=== PATIENT | female | born 1950 | race African-American/Black ===

== ENCOUNTER 2020-12-08 19:03 | Inpatient (IN) | payer OTHER ==
[2020-12-08] MEDS ORDERED: SODIUM CHLORIDE 1,000 ML IV STA (21:13)
[2020-12-08] MEDS ORDERED: ACETAMINOPHEN 325 MG TABLET (FP) PO ONE (21:38)
[2020-12-08] MEDS ORDERED: DIPHTH,PERTUSS(ACELL),TET 0.5 ML DISP.SYRIN IM ONE ×2 (21:51→21:54)
[2020-12-08 21:54] LABS: BASO % 0.1 % (0-2.0); EOS % 0.1 % (0-4.5); HEMOGLOBIN 11.9 GM/dL (10.7-15.3); LYMPH % 2.1 % (8-40); MCH 31.1 pg (25.7-33.7); MCHC 32.9 g/dl (32.0-36.0); MEAN CELL VOLUME 94.4 fl (80-96); MEAN PLT VOLUME 8.3 fl (7.5-11.1); MONO % 10.3 % (3.8-10.2); NEUT % 87.4 % (42.8-82.8); RBC 3.81 M/mm3 (3.60-5.2); RDW 14.9 % (11.6-15.6); WHITE BLOOD COUNT 27.8 K/mm3 (4.0-10.0)
[2020-12-08] MEDS ORDERED: ACETAMINOPHEN 325 MG TABLET (FP) ONE (21:54)
[2020-12-08 22:12] LABS: POTASSIUM 4.6 mmol/L (3.5-5.1)
[2020-12-08 22:13] LABS: PLATELET COUNT 1245 K/MM3 (134-434)
[2020-12-08 22:15] LABS: CALCIUM 9.5 mg/dL (8.5-10.1)
[2020-12-08 22:16] LABS: BLOOD UREA NITROGEN 25.3 mg/dL (7-18)
[2020-12-08 22:19] LABS: CREATININE 1.6 mg/dL (0.55-1.3)
[2020-12-08 22:20] LABS: BILIRUBIN,TOTAL 1.2 mg/dL (0.2-1)
[2020-12-08] MEDS ORDERED: PIPERACILLIN/TAZOB 4.5 GM 4.5 GM in DEXTROSE 5%-WATER 100 ML IVPB ONE (22:21)
[2020-12-08] MEDS ORDERED: VANCOMYCIN 1,000 MG in DEXTROSE 5%-WATER - 250 ML IVPB ONE (22:21)
[2020-12-08] MEDS ORDERED: LACTATED RINGERS SOLUTION 1000 ML INFUS.BAG IV ONE (22:39)
[2020-12-08] MEDS ORDERED: PIPERACILLIN/TAZOB 4.5 GM 4.5 GM/100 ML BAG IVPB ONE (22:41)
[2020-12-08] MEDS ORDERED: VANCOMYCIN 1 GRAM (PRE-DOCKED) 1,000 MG/250 ML BAG IVPB ONE (22:42)
[2020-12-08] MEDS ORDERED: HEPARIN NA (PORCINE) 5,000 UNITS/ML 1ML VIAL IVPUSH PRN (22:44)
[2020-12-09 01:16] LABS: INR 1.16 (0.83-1.09)
[2020-12-09 01:18] LABS: ACTIVATED PTT 32.5 SECONDS (25.2-36.5)
[2020-12-09] MEDS ORDERED: ACETAMINOPHEN 325 MG TABLET (FP) PO PRN (02:06)
[2020-12-09] MEDS ORDERED: ALBUTEROL SO4 HFA INHALER IH PRN (02:11)
[2020-12-09] MEDS: HEPARIN NA (PORCINE) 5,000 UNITS/ML 1ML VIAL IVPUSH PRN ×3 (03:05→16:48)
[2020-12-09] MEDS ORDERED: HEPARIN INFUSION - 25,000 UNITS/500 ML INFUS.BAG IVPB ONE (03:12)
[2020-12-09] MEDS ORDERED: HEPARIN NA (PORCINE) 5,000 UNITS/ML 1ML VIAL ONE ×3 (03:12→16:50)
[2020-12-09] MEDS: HEPARIN - 25,000 UNIT in SODIUM CHLORIDE 495 ML IV SCH (03:29)
[2020-12-09 07:53] LABS: HEMATOCRIT 32.7 % (32.4-45.2); MCH 31.6 pg (25.7-33.7); MCHC 33.6 g/dl (32.0-36.0); MEAN PLT VOLUME 8.1 fl (7.5-11.1); RBC 3.48 M/mm3 (3.60-5.2); RDW 15.1 % (11.6-15.6)
[2020-12-09 07:59] LABS: POTASSIUM 5.2 mmol/L (3.5-5.1)
[2020-12-09 08:02] LABS: INR 1.13 (0.83-1.09); PROTHROMBIN TIME (PATIENT) 13.9 SEC (9.7-13.0)
[2020-12-09 08:05] LABS: ALBUMIN 2.5 g/dl (3.4-5.0); BLOOD UREA NITROGEN 24.9 mg/dL (7-18); CALCIUM 8.8 mg/dL (8.5-10.1); MAGNESIUM 2.3 mg/dL (1.8-2.4)
[2020-12-09 08:09] LABS: BILIRUBIN,TOTAL 0.9 mg/dL (0.2-1); CREATININE 1.7 mg/dL (0.55-1.3); PHOSPHOROUS 4.4 mg/dL (2.5-4.9); TOT PROT 5.9 g/dl (6.4-8.2)
[2020-12-09 08:18] LABS: PLATELET COUNT 1163 K/MM3 (134-434)
[2020-12-09] MEDS: SODIUM CHLORIDE 1,000 ML IV SCH (10:37)
[2020-12-09] MEDS ORDERED: diphenhydrAMINE HCL 25 MG CAPSULE (FP) PO ONE ×2 (15:21→15:22)
[2020-12-10 05:26] LABS: EPI CELLS >36 /uL (0-25.1); HYALINE CASTS 3 /uL (0-3.1); URINE APPEARANCE CLOUDY; URINE BACTERIA 32 /uL (0-1359); URINE BILIRUBIN NEGATIVE (NEGATIVE); URINE COLOR YELLOW; URINE GLUCOSE (UA) NEGATIVE (NEGATIVE); URINE KETONE NEGATIVE (NEGATIVE); URINE LEUK ESTERASE TRACE (NEGATIVE); URINE NITRITE NEGATIVE (NEGATIVE); URINE PROTEIN 1+ (NEGATIVE); URINE RBC 20 /uL (0-23.9); URINE UROBILINOGEN 0.2 mg/dL (0.2-1.0); URINE WBC 31 /uL (0-25.8)
[2020-12-10] MEDS: HEPARIN - 25,000 UNIT in SODIUM CHLORIDE 495 ML IV SCH ×3 (06:36→22:15)
[2020-12-10] MEDS: SODIUM CHLORIDE 1,000 ML IV SCH ×2 (06:37→13:56)
[2020-12-10 09:01] LABS: HEMATOCRIT 32.2 % (32.4-45.2); HEMOGLOBIN 10.8 GM/dL (10.7-15.3); MCH 31.4 pg (25.7-33.7); MCHC 33.4 g/dl (32.0-36.0); MEAN CELL VOLUME 93.9 fl (80-96); MEAN PLT VOLUME 7.8 fl (7.5-11.1); PLATELET COUNT 1100 K/MM3 (134-434); RBC 3.43 M/mm3 (3.60-5.2); RDW 14.8 % (11.6-15.6); WHITE BLOOD COUNT 15.5 K/mm3 (4.0-10.0)
[2020-12-10] MEDS: metoPROLOL SUCCINATE 25 MG TAB.SR.24H (FP) PO SCH (09:38)
[2020-12-10] MEDS ORDERED: FLU VACCINE (FLULAVAL) PF 60 MCG/0.5 ML SYRINGE 2020-2021 IM ONE (10:00)
[2020-12-10] MEDS: diphenhydrAMINE HCL 25 MG CAPSULE (FP) PO PRN ×2 (12:08→22:14)
[2020-12-10] MEDS: HEPARIN NA (PORCINE) 5,000 UNITS/ML 1ML VIAL IVPUSH PRN (12:15)
[2020-12-11] MEDS: HEPARIN NA (PORCINE) 5,000 UNITS/ML 1ML VIAL IVPUSH PRN (06:53)
[2020-12-11] MEDS: HEPARIN - 25,000 UNIT in SODIUM CHLORIDE 495 ML IV SCH (06:54)
[2020-12-11] MEDS ORDERED: HEPARIN INFUSION - 25,000 UNITS/500 ML INFUS.BAG IVPB SCH (07:00)
[2020-12-11 08:43] LABS: HEMATOCRIT 30.4 % (32.4-45.2); HEMOGLOBIN 10.2 GM/dL (10.7-15.3); MCHC 33.7 g/dl (32.0-36.0); MEAN CELL VOLUME 94.7 fl (80-96); MEAN PLT VOLUME 8.4 fl (7.5-11.1); PLATELET COUNT 1081 K/MM3 (134-434); RDW 14.9 % (11.6-15.6); WHITE BLOOD COUNT 16.4 K/mm3 (4.0-10.0)
[2020-12-11] MEDS: diphenhydrAMINE HCL 25 MG CAPSULE (FP) PO PRN ×2 (09:11→21:37)
[2020-12-11] MEDS: metoPROLOL SUCCINATE 25 MG TAB.SR.24H (FP) PO SCH (09:11)
[2020-12-11] MEDS: SODIUM CHLORIDE 1,000 ML IV SCH (09:12)
[2020-12-11] MEDS ORDERED: DEXTROSE 5%-WATER 100 ML IVPB ONE (11:49)
[2020-12-11] MEDS: CEFTRIAXONE 2 GM in DEXTROSE 5%-WATER 2 GM/100 ML BAG IVPB SCH (12:12)
[2020-12-11 13:48] LABS: POTASSIUM 4.2 mmol/L (3.5-5.1)
[2020-12-11 13:50] LABS: ALBUMIN 2.1 g/dl (3.4-5.0); BLOOD UREA NITROGEN 18.4 mg/dL (7-18); CALCIUM 8.2 mg/dL (8.5-10.1)
[2020-12-11 13:54] LABS: CREATININE 1.3 mg/dL (0.55-1.3)
[2020-12-11 13:55] LABS: BILIRUBIN,TOTAL 0.3 mg/dL (0.2-1); TOT PROT 5.4 g/dl (6.4-8.2)
[2020-12-11] MEDS: HEPARIN INFUSION - 25,000 UNITS/500 ML INFUS.BAG IVPB SCH (15:31)
[2020-12-11] MEDS: ACETYLCYSTEINE 20% 200MG/ML 4 ML VIAL *FOR ORAL / INH USE ONLY PO SCH (21:37)
[2020-12-12] MEDS: SODIUM CHLORIDE 1,000 ML IV SCH ×3 (02:05→16:25)
[2020-12-12] MEDS: HEPARIN INFUSION - 25,000 UNITS/500 ML INFUS.BAG IVPB SCH ×2 (03:36→16:26)
[2020-12-12 08:25] LABS: HEMATOCRIT 32.5 % (32.4-45.2); HEMOGLOBIN 10.5 GM/dL (10.7-15.3); MCH 30.7 pg (25.7-33.7); MCHC 32.3 g/dl (32.0-36.0); MEAN CELL VOLUME 94.9 fl (80-96); MEAN PLT VOLUME 8.2 fl (7.5-11.1); RBC 3.42 M/mm3 (3.60-5.2); WHITE BLOOD COUNT 16.1 K/mm3 (4.0-10.0)
[2020-12-12 08:28] LABS: PLATELET COUNT 1164 K/MM3 (134-434)
[2020-12-12 08:43] LABS: POTASSIUM 4.5 mmol/L (3.5-5.1)
[2020-12-12 08:46] LABS: ALBUMIN 2.3 g/dl (3.4-5.0); BLOOD UREA NITROGEN 15.4 mg/dL (7-18); CALCIUM 8.7 mg/dL (8.5-10.1); MAGNESIUM 1.8 mg/dL (1.8-2.4)
[2020-12-12 08:50] LABS: CREATININE 1.3 mg/dL (0.55-1.3); PHOSPHOROUS 3.2 mg/dL (2.5-4.9)
[2020-12-12 08:51] LABS: BILIRUBIN,TOTAL 1.2 mg/dL (0.2-1); TOT PROT 5.7 g/dl (6.4-8.2)
[2020-12-12] MEDS ORDERED: DEXTROSE 5%-WATER 100 ML IVPB ONE (09:14)
[2020-12-12] MEDS ORDERED: PT OWN MED DRAWER 7, Y5N ONE ×2 (09:19→13:00)
[2020-12-12] MEDS: CEFTRIAXONE 2 GM in DEXTROSE 5%-WATER 2 GM/100 ML BAG IVPB SCH (09:41)
[2020-12-12] MEDS: metoPROLOL SUCCINATE 25 MG TAB.SR.24H (FP) PO SCH (09:42)
[2020-12-12] MEDS: ACETYLCYSTEINE 20% 200MG/ML 4 ML VIAL *FOR ORAL / INH USE ONLY PO SCH ×2 (11:42→13:13)
[2020-12-12] MEDS ORDERED: MAGNESIUM CL 64 MG TABLET.SA PO SCH (13:00)
[2020-12-13] MEDS: diphenhydrAMINE HCL 25 MG CAPSULE (FP) PO PRN ×3 (00:44→19:38)
[2020-12-13] MEDS: ACETYLCYSTEINE 20% 200MG/ML 4 ML VIAL *FOR ORAL / INH USE ONLY PO SCH ×2 (07:53→09:47)
[2020-12-13 09:01] LABS: HEMATOCRIT 30.9 % (32.4-45.2); HEMOGLOBIN 10.2 GM/dL (10.7-15.3); MCH 31.1 pg (25.7-33.7); MEAN CELL VOLUME 94.2 fl (80-96); MEAN PLT VOLUME 7.8 fl (7.5-11.1); RBC 3.28 M/mm3 (3.60-5.2); RDW 15.1 % (11.6-15.6); WHITE BLOOD COUNT 15.3 K/mm3 (4.0-10.0)
[2020-12-13 09:07] LABS: PLATELET COUNT 1194 K/MM3 (134-434)
[2020-12-13 09:24] LABS: POTASSIUM 4.3 mmol/L (3.5-5.1)
[2020-12-13 09:27] LABS: ALBUMIN 2.2 g/dl (3.4-5.0); BLOOD UREA NITROGEN 12.5 mg/dL (7-18); CALCIUM 8.4 mg/dL (8.5-10.1); MAGNESIUM 1.7 mg/dL (1.8-2.4)
[2020-12-13 09:30] LABS: CREATININE 1.2 mg/dL (0.55-1.3)
[2020-12-13 09:31] LABS: PHOSPHOROUS 3.8 mg/dL (2.5-4.9)
[2020-12-13] MEDS ORDERED: DEXTROSE 5%-WATER 100 ML IVPB ONE (09:31)
[2020-12-13 09:32] LABS: BILIRUBIN,TOTAL 0.3 mg/dL (0.2-1); TOT PROT 5.6 g/dl (6.4-8.2)
[2020-12-13] MEDS: metoPROLOL SUCCINATE 25 MG TAB.SR.24H (FP) PO SCH (09:47)
[2020-12-13] MEDS: CEFTRIAXONE 2 GM in DEXTROSE 5%-WATER 2 GM/100 ML BAG IVPB SCH (09:47)
[2020-12-13] MEDS: HEPARIN INFUSION - 25,000 UNITS/500 ML INFUS.BAG IVPB SCH (09:47)
[2020-12-13] MEDS: SODIUM CHLORIDE 1,000 ML IV SCH (09:47)
[2020-12-13] MEDS ORDERED: MAGNESIUM 2GM/50ML STERILE WATER IVPB IVPB ONE (13:56)
[2020-12-13] MEDS ORDERED: DEXTROSE 5%-NORMAL SALINE 1,000 ML IV SCH (14:00)
[2020-12-13] MEDS ORDERED: AMINO ACIDS 4.25%/D5W 1,000 ML IV SCH (14:00)
[2020-12-13] MEDS ORDERED: SODIUM CHLORIDE 1,000 ML IV SCH (14:15)
[2020-12-13] MEDS ORDERED: HEPARIN NA (PORCINE) 5,000 UNITS/ML 1ML VIAL IVPUSH ONE (15:31)
[2020-12-13] MEDS: HEPARIN INFUSION - 25,000 UNIT/500 ML INFUS.BAG IVPB SCH (16:20)
[2020-12-13 18:07] LABS: URIC ACID 3.4 mg/dL (2.6-7.2)
[2020-12-14] MEDS ORDERED: HEPARIN NA (PORCINE) 5,000 UNITS/ML 1ML VIAL IVPUSH PRN ×2 (00:42→00:50)
[2020-12-14] MEDS: HEPARIN NA (PORCINE) 5,000 UNITS/ML 1ML VIAL IVPUSH PRN ×3 (00:57→17:26)
[2020-12-14] MEDS: ALLOPURINOL 300 MG TABLET (FP) PO SCH ×2 (00:57→11:55)
[2020-12-14] MEDS: diphenhydrAMINE HCL 25 MG CAPSULE (FP) PO PRN ×3 (01:14→23:30)
[2020-12-14 09:56] LABS: BASO % 0.8 % (0-2.0); HEMATOCRIT 29.8 % (32.4-45.2); LYMPH % 17.5 % (8-40); MCH 31.8 pg (25.7-33.7); MCHC 33.5 g/dl (32.0-36.0); MEAN CELL VOLUME 94.8 fl (80-96); MONO % 6.9 % (3.8-10.2); NEUT % 72.8 % (42.8-82.8); RBC 3.14 M/mm3 (3.60-5.2); WHITE BLOOD COUNT 12.8 K/mm3 (4.0-10.0)
[2020-12-14 09:58] LABS: PLATELET COUNT 1174 K/MM3 (134-434)
[2020-12-14 10:29] LABS: CALCIUM 8.2 mg/dL (8.5-10.1)
[2020-12-14 10:30] LABS: ALBUMIN 2.2 g/dl (3.4-5.0); BLOOD UREA NITROGEN 8.9 mg/dL (7-18); MAGNESIUM 2.2 mg/dL (1.8-2.4)
[2020-12-14 10:32] LABS: CREATININE 1.2 mg/dL (0.55-1.3)
[2020-12-14 10:33] LABS: PHOSPHOROUS 3.2 mg/dL (2.5-4.9)
[2020-12-14 10:34] LABS: BILIRUBIN,TOTAL 0.8 mg/dL (0.2-1); TOT PROT 5.2 g/dl (6.4-8.2)
[2020-12-14 10:59] LABS: ANISOCYTOSIS 1+; PLATELET ESTIMATE INCREASED
[2020-12-14] MEDS ORDERED: DEXTROSE 5%-WATER 100 ML IVPB ONE (11:48)
[2020-12-14] MEDS: metoPROLOL SUCCINATE 25 MG TAB.SR.24H (FP) PO SCH (11:55)
[2020-12-14] MEDS: CEFTRIAXONE 2 GM in DEXTROSE 5%-WATER 2 GM/100 ML BAG IVPB SCH (11:55)
[2020-12-14] MEDS: HYDROXYUREA 500 MG CAPSULE PO SCH ×2 (11:55→23:29)
[2020-12-14] MEDS: HEPARIN INFUSION - 25,000 UNIT/500 ML INFUS.BAG IVPB SCH (14:44)
[2020-12-14] MEDS ORDERED: PT OWN MED DRAWER 7, Y5N ONE (23:15)
[2020-12-14] MEDS: BUDESONIDE/FORMETEROL FUMARATE 80/4.5 mcg INHALER IH SCH (23:29)
[2020-12-15] MEDS ORDERED: HEPARIN NA (PORCINE) 5,000 UNITS/ML 1ML VIAL IVPUSH PRN (02:16)
[2020-12-15] MEDS: HEPARIN INFUSION - 25,000 UNIT/500 ML INFUS.BAG IVPB SCH ×2 (02:35→10:49)
[2020-12-15] MEDS ORDERED: DEXTROSE 5%-WATER 100 ML IVPB ONE (09:06)
[2020-12-15] MEDS: BUDESONIDE/FORMETEROL FUMARATE 80/4.5 mcg INHALER IH SCH ×2 (09:11→21:25)
[2020-12-15] MEDS: CEFTRIAXONE 2 GM in DEXTROSE 5%-WATER 2 GM/100 ML BAG IVPB SCH (09:12)
[2020-12-15] MEDS: HYDROXYUREA 500 MG CAPSULE PO SCH ×2 (09:14→14:24)
[2020-12-15] MEDS: ALLOPURINOL 300 MG TABLET (FP) PO SCH ×2 (09:14→14:24)
[2020-12-15] MEDS: metoPROLOL SUCCINATE 25 MG TAB.SR.24H (FP) PO SCH ×2 (09:14→14:26)
[2020-12-15 09:17] LABS: BASO % 1.4 % (0-2.0); EOS % 2.2 % (0-4.5); HEMATOCRIT 30.7 % (32.4-45.2); HEMOGLOBIN 10.3 GM/dL (10.7-15.3); LYMPH % 16.6 % (8-40); MCH 31.4 pg (25.7-33.7); MCHC 33.4 g/dl (32.0-36.0); MEAN CELL VOLUME 94.1 fl (80-96); MEAN PLT VOLUME 7.6 fl (7.5-11.1); MONO % 8.7 % (3.8-10.2); NEUT % 71.1 % (42.8-82.8); RBC 3.27 M/mm3 (3.60-5.2); WHITE BLOOD COUNT 12.5 K/mm3 (4.0-10.0)
[2020-12-15 09:30] LABS: PLATELET COUNT 1273 K/MM3 (134-434)
[2020-12-15 09:39] LABS: POTASSIUM 4.4 mmol/L (3.5-5.1)
[2020-12-15 09:55] LABS: ALBUMIN 2.5 g/dl (3.4-5.0)
[2020-12-15 09:59] LABS: CALCIUM 8.9 mg/dL (8.5-10.1)
[2020-12-15 10:02] LABS: BILIRUBIN,TOTAL 0.4 mg/dL (0.2-1); CREATININE 1.3 mg/dL (0.55-1.3); PHOSPHOROUS 4.3 mg/dL (2.5-4.9)
[2020-12-15 11:39] VITALS: BMI 20.5
[2020-12-15] MEDS: diphenhydrAMINE HCL 25 MG CAPSULE (FP) PO PRN ×2 (14:34→21:30)
[2020-12-15] MEDS: ENOXAPARIN NA (PORCINE) 40 MG/0.4 ML DISP.SYRIN SQ SCH ×2 (14:35→21:25)
[2020-12-16] MEDS: HYDROXYUREA 500 MG CAPSULE PO SCH ×3 (02:25→21:50)
[2020-12-16 07:47] LABS: BASO % 0.7 % (0-2.0); EOS % 1.9 % (0-4.5); HEMATOCRIT 29.9 % (32.4-45.2); HEMOGLOBIN 10.1 GM/dL (10.7-15.3); LYMPH % 18.2 % (8-40); MCH 31.7 pg (25.7-33.7); MCHC 33.6 g/dl (32.0-36.0); MEAN CELL VOLUME 94.2 fl (80-96); MEAN PLT VOLUME 7.9 fl (7.5-11.1); MONO % 6.8 % (3.8-10.2); NEUT % 72.4 % (42.8-82.8); RBC 3.18 M/mm3 (3.60-5.2); RDW 14.8 % (11.6-15.6); WHITE BLOOD COUNT 11.9 K/mm3 (4.0-10.0)
[2020-12-16 07:51] LABS: PLATELET COUNT 1252 K/MM3 (134-434)
[2020-12-16 08:26] LABS: POTASSIUM 4.9 mmol/L (3.5-5.1)
[2020-12-16 09:01] LABS: ALBUMIN 2.5 g/dl (3.4-5.0); BLOOD UREA NITROGEN 17.1 mg/dL (7-18); CALCIUM 9.2 mg/dL (8.5-10.1)
[2020-12-16 09:02] LABS: BILIRUBIN,TOTAL 0.4 mg/dL (0.2-1)
[2020-12-16 09:06] LABS: TOT PROT 6.1 g/dl (6.4-8.2)
[2020-12-16 09:08] LABS: CREATININE 1.4 mg/dL (0.55-1.3)
[2020-12-16] MEDS ORDERED: DEXTROSE 5%-WATER 100 ML IVPB ONE (09:25)
[2020-12-16] MEDS ORDERED: PT OWN MED DRAWER 7, Y5N ONE (09:25)
[2020-12-16] MEDS: CEFTRIAXONE 2 GM in DEXTROSE 5%-WATER 2 GM/100 ML BAG IVPB SCH (09:33)
[2020-12-16] MEDS: ENOXAPARIN NA (PORCINE) 40 MG/0.4 ML DISP.SYRIN SQ SCH ×2 (09:33→21:50)
[2020-12-16] MEDS: metoPROLOL SUCCINATE 25 MG TAB.SR.24H (FP) PO SCH (09:33)
[2020-12-16] MEDS: ALLOPURINOL 300 MG TABLET (FP) PO SCH (09:33)
[2020-12-16] MEDS: MULTIVITAMINS (DAILY MVI) TABLET (FP) PO SCH (09:33)
[2020-12-16] MEDS: BUDESONIDE/FORMETEROL FUMARATE 80/4.5 mcg INHALER IH SCH ×2 (09:34→21:50)
[2020-12-16] MEDS ORDERED: MULTIVIT-MINERALS ORAL LIQUID PO SCH (10:00)
[2020-12-16] MEDS: diphenhydrAMINE HCL 25 MG CAPSULE (FP) PO PRN ×2 (13:14→23:06)
[2020-12-16] MEDS ORDERED: SODIUM CHLORIDE 1,000 ML IV SCH (13:15)
[2020-12-16 14:07] LABS: RISTOCETIN CO-FACTOR 146 % (50-200); VON WILLEBRAND ANTIGEN 198 % (50-200)
[2020-12-17] MEDS ORDERED: DEXTROSE 5%-WATER 100 ML IVPB ONE (10:18)
[2020-12-17] MEDS: HYDROXYUREA 500 MG CAPSULE PO SCH ×2 (10:23→22:06)
[2020-12-17] MEDS: ALLOPURINOL 300 MG TABLET (FP) PO SCH (10:23)
[2020-12-17] MEDS: metoPROLOL SUCCINATE 25 MG TAB.SR.24H (FP) PO SCH (10:23)
[2020-12-17] MEDS: diphenhydrAMINE HCL 25 MG CAPSULE (FP) PO PRN ×2 (10:23→22:06)
[2020-12-17] MEDS: BUDESONIDE/FORMETEROL FUMARATE 80/4.5 mcg INHALER IH SCH ×2 (10:24→22:07)
[2020-12-17] MEDS: MULTIVITAMINS (DAILY MVI) TABLET (FP) PO SCH (10:24)
[2020-12-17] MEDS: ENOXAPARIN NA (PORCINE) 40 MG/0.4 ML DISP.SYRIN SQ SCH ×2 (10:24→22:06)
[2020-12-17] MEDS: CEFTRIAXONE 2 GM in DEXTROSE 5%-WATER 2 GM/100 ML BAG IVPB SCH (10:24)
[2020-12-17 10:26] LABS: HEMATOCRIT 31.6 % (32.4-45.2); HEMOGLOBIN 10.5 GM/dL (10.7-15.3); MCH 31.5 pg (25.7-33.7); MCHC 33.1 g/dl (32.0-36.0); MEAN CELL VOLUME 95.2 fl (80-96); MEAN PLT VOLUME 8.1 fl (7.5-11.1); RBC 3.32 M/mm3 (3.60-5.2); RDW 15.4 % (11.6-15.6); WHITE BLOOD COUNT 11.8 K/mm3 (4.0-10.0)
[2020-12-17 10:28] LABS: PLATELET COUNT 1261 K/MM3 (134-434)
[2020-12-17 11:20] LABS: CALCIUM 9.1 mg/dL (8.5-10.1)
[2020-12-17 11:21] LABS: ALBUMIN 2.7 g/dl (3.4-5.0); BLOOD UREA NITROGEN 17.1 mg/dL (7-18)
[2020-12-17 11:24] LABS: CREATININE 1.4 mg/dL (0.55-1.3)
[2020-12-17 11:25] LABS: BILIRUBIN,TOTAL 0.5 mg/dL (0.2-1)
[2020-12-17 11:26] LABS: TOT PROT 6.2 g/dl (6.4-8.2)
[2020-12-17 11:27] LABS: POTASSIUM 5.5 mmol/L (3.5-5.1)
[2020-12-17] MEDS ORDERED: SODIUM ZIRCONIUM CYCLOSILICATE (LOKELMA) 5 GM PACKET PO ONE (13:00)
[2020-12-17] MEDS: MELATONIN 5 MG TABLETS PO SCH (22:05)
[2020-12-18 10:20] LABS: BASO % 1.3 % (0-2.0); EOS % 1.8 % (0-4.5); HEMATOCRIT 30.9 % (32.4-45.2); HEMOGLOBIN 10.3 GM/dL (10.7-15.3); LYMPH % 17.1 % (8-40); MCH 31.6 pg (25.7-33.7); MCHC 33.3 g/dl (32.0-36.0); MEAN CELL VOLUME 94.8 fl (80-96); MEAN PLT VOLUME 7.9 fl (7.5-11.1); MONO % 7.9 % (3.8-10.2); NEUT % 71.9 % (42.8-82.8); RBC 3.26 M/mm3 (3.60-5.2); WHITE BLOOD COUNT 11.2 K/mm3 (4.0-10.0)
[2020-12-18 10:21] LABS: PLATELET COUNT 1315 K/MM3 (134-434)
[2020-12-18 10:45] LABS: POTASSIUM 5.4 mmol/L (3.5-5.1)
[2020-12-18 10:51] LABS: CALCIUM 9.1 mg/dL (8.5-10.1)
[2020-12-18 10:52] LABS: ALBUMIN 2.7 g/dl (3.4-5.0); BLOOD UREA NITROGEN 20.7 mg/dL (7-18)
[2020-12-18 10:55] LABS: CREATININE 1.4 mg/dL (0.55-1.3)
[2020-12-18 10:57] LABS: TOT PROT 6.3 g/dl (6.4-8.2)
[2020-12-18] MEDS ORDERED: SODIUM ZIRCONIUM CYCLOSILICATE (LOKELMA) 5 GM PACKET PO SCH (11:00)
[2020-12-18] MEDS ORDERED: DEXTROSE 5%-WATER 100 ML IVPB ONE (11:02)
[2020-12-18] MEDS: metoPROLOL SUCCINATE 25 MG TAB.SR.24H (FP) PO SCH (11:05)
[2020-12-18] MEDS: HYDROXYUREA 500 MG CAPSULE PO SCH ×2 (11:05→22:09)
[2020-12-18] MEDS: CEFTRIAXONE 2 GM in DEXTROSE 5%-WATER 2 GM/100 ML BAG IVPB SCH (11:06)
[2020-12-18] MEDS: ENOXAPARIN NA (PORCINE) 40 MG/0.4 ML DISP.SYRIN SQ SCH ×2 (11:06→22:09)
[2020-12-18] MEDS: ALLOPURINOL 300 MG TABLET (FP) PO SCH (11:06)
[2020-12-18] MEDS: BUDESONIDE/FORMETEROL FUMARATE 80/4.5 mcg INHALER IH SCH ×2 (11:07→22:19)
[2020-12-18 11:09] LABS: BILIRUBIN,TOTAL 0.7 mg/dL (0.2-1)
[2020-12-18] MEDS: diphenhydrAMINE HCL 25 MG CAPSULE (FP) PO PRN ×2 (13:12→22:09)
[2020-12-18] MEDS ORDERED: SODIUM CHLORIDE 500 ML IV STA (14:44)
[2020-12-18] MEDS: MELATONIN 5 MG TABLETS PO SCH (22:17)
[2020-12-19 08:34] LABS: BASO % 0.7 % (0-2.0); EOS % 1.8 % (0-4.5); HEMATOCRIT 29.4 % (32.4-45.2); HEMOGLOBIN 9.9 GM/dL (10.7-15.3); INR 1.06 (0.83-1.09); LYMPH % 17.1 % (8-40); MCH 32.1 pg (25.7-33.7); MCHC 33.6 g/dl (32.0-36.0); MEAN CELL VOLUME 95.4 fl (80-96); MEAN PLT VOLUME 7.9 fl (7.5-11.1); MONO % 7.9 % (3.8-10.2); NEUT % 72.5 % (42.8-82.8); PROTHROMBIN TIME (PATIENT) 12.8 SEC (9.7-13.0); RBC 3.08 M/mm3 (3.60-5.2); RDW 15.1 % (11.6-15.6); WHITE BLOOD COUNT 10.5 K/mm3 (4.0-10.0)
[2020-12-19 08:35] LABS: ACTIVATED PTT 34.5 SECONDS (25.2-36.5)
[2020-12-19 08:37] LABS: PLATELET COUNT 1228 K/MM3 (134-434)
[2020-12-19 09:20] LABS: CALCIUM 9.9 mg/dL (8.5-10.1)
[2020-12-19 09:21] LABS: ALBUMIN 2.8 g/dl (3.4-5.0); BLOOD UREA NITROGEN 25.5 mg/dL (7-18)
[2020-12-19 09:24] LABS: CREATININE 1.4 mg/dL (0.55-1.3)
[2020-12-19 09:25] LABS: BILIRUBIN,TOTAL 0.6 mg/dL (0.2-1); TOT PROT 6.4 g/dl (6.4-8.2)
[2020-12-19] MEDS ORDERED: DEXTROSE 5%-WATER 100 ML IVPB ONE (09:53)
[2020-12-19] MEDS ORDERED: INSULIN REGULAR HUMAN 100 UNITS/ML *VIAL IVPUSH ONE (10:03)
[2020-12-19] MEDS ORDERED: DEXTROSE 50%-WATER - 25 GM/50 ML VIAL IVPUSH ONE (10:05)
[2020-12-19] MEDS: BUDESONIDE/FORMETEROL FUMARATE 80/4.5 mcg INHALER IH SCH ×2 (10:12→21:28)
[2020-12-19] MEDS: CEFTRIAXONE 2 GM in DEXTROSE 5%-WATER 2 GM/100 ML BAG IVPB SCH (10:12)
[2020-12-19] MEDS: ENOXAPARIN NA (PORCINE) 40 MG/0.4 ML DISP.SYRIN SQ SCH ×3 (10:12→21:28)
[2020-12-19] MEDS: HYDROXYUREA 500 MG CAPSULE PO SCH ×2 (10:13→21:23)
[2020-12-19] MEDS: metoPROLOL SUCCINATE 25 MG TAB.SR.24H (FP) PO SCH (10:13)
[2020-12-19] MEDS: ALLOPURINOL 300 MG TABLET (FP) PO SCH (10:13)
[2020-12-19] MEDS ORDERED: PT OWN MED DRAWER 7, Y5N ONE ×2 (10:44→13:53)
[2020-12-19] MEDS: SODIUM ZIRCONIUM CYCLOSILICATE (LOKELMA) 10 GM PACKET PO SCH (10:49)
[2020-12-19] MEDS: diphenhydrAMINE HCL 25 MG CAPSULE (FP) PO PRN ×2 (10:50→17:59)
[2020-12-19] MEDS ORDERED: CALCIUM GLUCONATE 10% - 1,000 MG/10 ML VIAL IVPUSH ONE (11:15)
[2020-12-19] MEDS ORDERED: DEXTROSE 50%-WATER 25 GM/50 ML DISP.SYRIN ONE (11:49)
[2020-12-19] MEDS: SODIUM CHLORIDE 0.45% 1,000 ML IV SCH (12:08)
[2020-12-19 12:57] LABS: POTASSIUM 4.2 mmol/L (3.5-5.1)
[2020-12-19 12:59] LABS: BLOOD UREA NITROGEN 22.8 mg/dL (7-18)
[2020-12-19 13:02] LABS: CREATININE 1.3 mg/dL (0.55-1.3)
[2020-12-19] MEDS ORDERED: ASPIRIN 81 MG CHEWABLE TABLETS PO ONE (16:11)
[2020-12-19] MEDS ORDERED: SODIUM ZIRCONIUM CYCLOSILICATE (LOKELMA) 5 GM PACKET PO ONE (20:00)
[2020-12-19] MEDS: MELATONIN 5 MG TABLETS PO SCH (21:23)
[2020-12-19] MEDS: ANAGRELIDE HCL 0.5 MG CAPSULE PO SCH (21:23)
[2020-12-20] MEDS: diphenhydrAMINE HCL 25 MG CAPSULE (FP) PO PRN ×3 (00:48→21:23)
[2020-12-20] MEDS: ENOXAPARIN NA (PORCINE) 40 MG/0.4 ML DISP.SYRIN SQ SCH ×3 (11:08→21:26)
[2020-12-20] MEDS: HYDROXYUREA 500 MG CAPSULE PO SCH ×2 (11:09→21:20)
[2020-12-20] MEDS: metoPROLOL SUCCINATE 25 MG TAB.SR.24H (FP) PO SCH (11:09)
[2020-12-20] MEDS: ALLOPURINOL 300 MG TABLET (FP) PO SCH (11:09)
[2020-12-20] MEDS: BUDESONIDE/FORMETEROL FUMARATE 80/4.5 mcg INHALER IH SCH ×2 (11:10→21:28)
[2020-12-20] MEDS: ANAGRELIDE HCL 0.5 MG CAPSULE PO SCH ×2 (11:11→21:21)
[2020-12-20] MEDS: SODIUM ZIRCONIUM CYCLOSILICATE (LOKELMA) 10 GM PACKET PO SCH (11:13)
[2020-12-20] MEDS: SODIUM CHLORIDE 0.45% 1,000 ML IV SCH ×2 (11:13→14:10)
[2020-12-20] MEDS: CEFTRIAXONE 2 GM in DEXTROSE 5%-WATER 2 GM/100 ML BAG IVPB SCH (11:14)
[2020-12-20] MEDS: ASPIRIN COATED 81 MG TABLET.EC PO SCH (11:21)
[2020-12-20] MEDS ORDERED: PT OWN MED DRAWER 7, Y5N ONE (20:31)
[2020-12-20] MEDS: MELATONIN 5 MG TABLETS PO SCH (21:21)
[2020-12-21 08:59] LABS: HEMOGLOBIN 9.9 GM/dL (10.7-15.3); MCH 32.7 pg (25.7-33.7); MCHC 34.1 g/dl (32.0-36.0); MEAN CELL VOLUME 95.9 fl (80-96); MEAN PLT VOLUME 7.9 fl (7.5-11.1); RBC 3.03 M/mm3 (3.60-5.2); RDW 15.1 % (11.6-15.6); WHITE BLOOD COUNT 6.7 K/mm3 (4.0-10.0)
[2020-12-21 09:07] LABS: PLATELET COUNT 1285 K/MM3 (134-434)
[2020-12-21] MEDS: ASPIRIN COATED 81 MG TABLET.EC PO SCH (09:23)
[2020-12-21] MEDS: ANAGRELIDE HCL 0.5 MG CAPSULE PO SCH ×2 (09:23→21:27)
[2020-12-21] MEDS: HYDROXYUREA 500 MG CAPSULE PO SCH (09:24)
[2020-12-21] MEDS: metoPROLOL SUCCINATE 25 MG TAB.SR.24H (FP) PO SCH (09:24)
[2020-12-21] MEDS: BUDESONIDE/FORMETEROL FUMARATE 80/4.5 mcg INHALER IH SCH ×2 (09:24→22:38)
[2020-12-21] MEDS: ALLOPURINOL 300 MG TABLET (FP) PO SCH (09:24)
[2020-12-21] MEDS: ENOXAPARIN NA (PORCINE) 40 MG/0.4 ML DISP.SYRIN SQ SCH ×3 (09:25→21:26)
[2020-12-21 09:28] LABS: POTASSIUM 5.1 mmol/L (3.5-5.1)
[2020-12-21 09:41] LABS: BILIRUBIN,TOTAL 0.5 mg/dL (0.2-1); CALCIUM 9.3 mg/dL (8.5-10.1); TOT PROT 6.1 g/dl (6.4-8.2)
[2020-12-21 09:42] LABS: ALBUMIN 2.7 g/dl (3.4-5.0)
[2020-12-21 09:43] LABS: BLOOD UREA NITROGEN 23.8 mg/dL (7-18); CREATININE 1.2 mg/dL (0.55-1.3)
[2020-12-21 09:44] LABS: MAGNESIUM 2.1 mg/dL (1.8-2.4)
[2020-12-21 09:45] LABS: PHOSPHOROUS 4.7 mg/dL (2.5-4.9)
[2020-12-21] MEDS ORDERED: SODIUM ZIRCONIUM CYCLOSILICATE (LOKELMA) 5 GM PACKET PO ONE (10:00)
[2020-12-21] MEDS ORDERED: HYDROXYUREA 500 MG CAPSULE PO SCH (15:39)
[2020-12-21] MEDS: SODIUM CHLORIDE 0.45% 1,000 ML IV SCH (17:17)
[2020-12-21] MEDS: MELATONIN 5 MG TABLETS PO SCH (22:38)
[2020-12-22] MEDS: diphenhydrAMINE HCL 25 MG CAPSULE (FP) PO PRN ×2 (00:59→22:42)
[2020-12-22 10:33] LABS: HEMATOCRIT 30.2 % (32.4-45.2); HEMOGLOBIN 10.3 GM/dL (10.7-15.3); MCH 32.7 pg (25.7-33.7); MCHC 34.2 g/dl (32.0-36.0); MEAN CELL VOLUME 95.5 fl (80-96); MEAN PLT VOLUME 7.8 fl (7.5-11.1); RBC 3.16 M/mm3 (3.60-5.2); RDW 15.5 % (11.6-15.6); WHITE BLOOD COUNT 5.7 K/mm3 (4.0-10.0)
[2020-12-22 10:40] LABS: PLATELET COUNT 1317 K/MM3 (134-434)
[2020-12-22 11:01] LABS: POTASSIUM 4.5 mmol/L (3.5-5.1)
[2020-12-22 11:06] LABS: ALBUMIN 2.9 g/dl (3.4-5.0); BLOOD UREA NITROGEN 33.4 mg/dL (7-18); CALCIUM 9.3 mg/dL (8.5-10.1); MAGNESIUM 2.1 mg/dL (1.8-2.4)
[2020-12-22 11:09] LABS: CREATININE 1.3 mg/dL (0.55-1.3); PHOSPHOROUS 3.8 mg/dL (2.5-4.9)
[2020-12-22 11:10] LABS: BILIRUBIN,TOTAL 0.6 mg/dL (0.2-1); TOT PROT 6.6 g/dl (6.4-8.2)
[2020-12-22] MEDS ORDERED: PT OWN MED DRAWER 7, Y5N ONE (11:22)
[2020-12-22] MEDS: BUDESONIDE/FORMETEROL FUMARATE 80/4.5 mcg INHALER IH SCH ×2 (11:25→22:42)
[2020-12-22] MEDS: ALLOPURINOL 300 MG TABLET (FP) PO SCH (11:25)
[2020-12-22] MEDS: metoPROLOL SUCCINATE 25 MG TAB.SR.24H (FP) PO SCH (11:25)
[2020-12-22] MEDS: ASPIRIN COATED 81 MG TABLET.EC PO SCH (11:25)
[2020-12-22] MEDS: ENOXAPARIN NA (PORCINE) 40 MG/0.4 ML DISP.SYRIN SQ SCH ×2 (11:26→22:40)
[2020-12-22] MEDS: ANAGRELIDE HCL 0.5 MG CAPSULE PO SCH ×2 (11:26→22:41)
[2020-12-22] MEDS ORDERED: HYDROXYUREA 500 MG CAPSULE PO SCH (22:00)
[2020-12-22] MEDS: MELATONIN 5 MG TABLETS PO SCH (22:42)
[2020-12-22] MEDS: HYDROXYUREA 500 MG CAPSULE PO SCH (22:42)
[2020-12-23 08:09] LABS: BASO % 1.4 % (0-2.0); EOS % 2.4 % (0-4.5); HEMATOCRIT 29.6 % (32.4-45.2); HEMOGLOBIN 10.1 GM/dL (10.7-15.3); LYMPH % 25.9 % (8-40); MCH 33.1 pg (25.7-33.7); MCHC 34.2 g/dl (32.0-36.0); MEAN CELL VOLUME 96.8 fl (80-96); MONO % 6.6 % (3.8-10.2); NEUT % 63.7 % (42.8-82.8); RBC 3.05 M/mm3 (3.60-5.2); RDW 15.4 % (11.6-15.6); WHITE BLOOD COUNT 5.7 K/mm3 (4.0-10.0)
[2020-12-23 08:21] LABS: POTASSIUM 5.1 mmol/L (3.5-5.1)
[2020-12-23 08:22] LABS: PLATELET COUNT 1209 K/MM3 (134-434)
[2020-12-23 08:30] LABS: BLOOD UREA NITROGEN 35.5 mg/dL (7-18); CALCIUM 9.7 mg/dL (8.5-10.1); MAGNESIUM 2.2 mg/dL (1.8-2.4)
[2020-12-23 08:33] LABS: CREATININE 1.4 mg/dL (0.55-1.3)
[2020-12-23 08:34] LABS: PHOSPHOROUS 4.8 mg/dL (2.5-4.9); TOT PROT 6.8 g/dl (6.4-8.2)
[2020-12-23 08:38] LABS: BILIRUBIN,TOTAL 0.9 mg/dL (0.2-1)
[2020-12-23] MEDS: metoPROLOL SUCCINATE 25 MG TAB.SR.24H (FP) PO SCH (09:26)
[2020-12-23] MEDS: ANAGRELIDE HCL 0.5 MG CAPSULE PO SCH ×2 (09:26→22:12)
[2020-12-23] MEDS: HYDROXYUREA 500 MG CAPSULE PO SCH ×2 (09:26→22:10)
[2020-12-23] MEDS: ALLOPURINOL 300 MG TABLET (FP) PO SCH ×3 (09:26→14:05)
[2020-12-23] MEDS: ASPIRIN COATED 81 MG TABLET.EC PO SCH (09:26)
[2020-12-23] MEDS: ENOXAPARIN NA (PORCINE) 40 MG/0.4 ML DISP.SYRIN SQ SCH ×4 (09:27→22:12)
[2020-12-23] MEDS: BUDESONIDE/FORMETEROL FUMARATE 80/4.5 mcg INHALER IH SCH ×2 (09:27→22:11)
[2020-12-23] MEDS ORDERED: SODIUM CHLORIDE 0.45% 1,000 ML IV SCH (13:45)
[2020-12-23] MEDS: SENNOSIDES 8.6MG TABLET (FP) PO SCH (22:11)
[2020-12-23] MEDS: diphenhydrAMINE HCL 25 MG CAPSULE (FP) PO PRN (22:11)
[2020-12-23] MEDS: MELATONIN 5 MG TABLETS PO SCH (22:12)
[2020-12-24 08:10] LABS: EOS % 1.9 % (0-4.5); HEMATOCRIT 30.6 % (32.4-45.2); HEMOGLOBIN 10.3 GM/dL (10.7-15.3); LYMPH % 24.4 % (8-40); MCH 32.6 pg (25.7-33.7); MCHC 33.6 g/dl (32.0-36.0); MEAN CELL VOLUME 96.9 fl (80-96); MEAN PLT VOLUME 7.9 fl (7.5-11.1); MONO % 6.9 % (3.8-10.2); NEUT % 65.8 % (42.8-82.8); RBC 3.15 M/mm3 (3.60-5.2); RDW 15.5 % (11.6-15.6); WHITE BLOOD COUNT 6.3 K/mm3 (4.0-10.0)
[2020-12-24 08:19] LABS: POTASSIUM 5.2 mmol/L (3.5-5.1)
[2020-12-24 08:26] LABS: BLOOD UREA NITROGEN 47.6 mg/dL (7-18); CALCIUM 9.6 mg/dL (8.5-10.1); MAGNESIUM 2.2 mg/dL (1.8-2.4)
[2020-12-24 08:29] LABS: CREATININE 1.5 mg/dL (0.55-1.3); PHOSPHOROUS 4.8 mg/dL (2.5-4.9)
[2020-12-24 08:31] LABS: BILIRUBIN,TOTAL 0.6 mg/dL (0.2-1); TOT PROT 6.8 g/dl (6.4-8.2)
[2020-12-24 08:42] LABS: PLATELET COUNT 1147 K/MM3 (134-434)
[2020-12-24] MEDS ORDERED: PT OWN MED DRAWER 7, Y5N ONE ×2 (10:33→20:07)
[2020-12-24] MEDS: ALLOPURINOL 300 MG TABLET (FP) PO SCH (10:34)
[2020-12-24] MEDS: ANAGRELIDE HCL 0.5 MG CAPSULE PO SCH ×2 (10:34→21:29)
[2020-12-24] MEDS: HYDROXYUREA 500 MG CAPSULE PO SCH ×2 (10:35→21:30)
[2020-12-24] MEDS: metoPROLOL SUCCINATE 25 MG TAB.SR.24H (FP) PO SCH (10:35)
[2020-12-24] MEDS: ASPIRIN COATED 81 MG TABLET.EC PO SCH (10:36)
[2020-12-24] MEDS: ENOXAPARIN NA (PORCINE) 40 MG/0.4 ML DISP.SYRIN SQ SCH ×3 (10:42→21:30)
[2020-12-24] MEDS: BUDESONIDE/FORMETEROL FUMARATE 80/4.5 mcg INHALER IH SCH ×2 (10:44→21:31)
[2020-12-24] MEDS: POLYETHYLENE GLYCOL 3350 119 GM BTL PO SCH (10:47)
[2020-12-24] MEDS: MELATONIN 5 MG TABLETS PO SCH (21:30)
[2020-12-24] MEDS: SENNOSIDES 8.6MG TABLET (FP) PO SCH (21:31)
[2020-12-24] MEDS: diphenhydrAMINE HCL 25 MG CAPSULE (FP) PO PRN (21:33)
[2020-12-25] MEDS ORDERED: PT OWN MED DRAWER 7, Y5N ONE ×3 (10:02→19:55)
[2020-12-25] MEDS: ENOXAPARIN NA (PORCINE) 40 MG/0.4 ML DISP.SYRIN SQ SCH ×2 (10:29→21:25)
[2020-12-25] MEDS: metoPROLOL SUCCINATE 25 MG TAB.SR.24H (FP) PO SCH (10:30)
[2020-12-25] MEDS: HYDROXYUREA 500 MG CAPSULE PO SCH ×2 (10:30→21:25)
[2020-12-25] MEDS: ANAGRELIDE HCL 0.5 MG CAPSULE PO SCH ×2 (10:30→21:25)
[2020-12-25] MEDS: ASPIRIN COATED 81 MG TABLET.EC PO SCH (10:31)
[2020-12-25] MEDS: BUDESONIDE/FORMETEROL FUMARATE 80/4.5 mcg INHALER IH SCH ×2 (10:31→21:26)
[2020-12-25] MEDS: ALLOPURINOL 300 MG TABLET (FP) PO SCH (10:31)
[2020-12-25] MEDS: POLYETHYLENE GLYCOL 3350 119 GM BTL PO SCH (10:32)
[2020-12-25 12:59] LABS: POTASSIUM 5.6 mmol/L (3.5-5.1)
[2020-12-25 13:00] LABS: CALCIUM 9.7 mg/dL (8.5-10.1)
[2020-12-25 13:01] LABS: BLOOD UREA NITROGEN 44.3 mg/dL (7-18)
[2020-12-25 13:03] LABS: URIC ACID 3.7 mg/dL (2.6-7.2)
[2020-12-25 13:04] LABS: CREATININE 1.5 mg/dL (0.55-1.3)
[2020-12-25] MEDS: SODIUM ZIRCONIUM CYCLOSILICATE (LOKELMA) 5 GM PACKET PO SCH (16:29)
[2020-12-25] MEDS: MELATONIN 5 MG TABLETS PO SCH (21:25)
[2020-12-25] MEDS: SENNOSIDES 8.6MG TABLET (FP) PO SCH (21:25)
[2020-12-25] MEDS: diphenhydrAMINE HCL 25 MG CAPSULE (FP) PO PRN (21:25)
[2020-12-26] MEDS ORDERED: PT OWN MED DRAWER 7, Y5N ONE ×4 (08:42→20:32)
[2020-12-26 08:51] LABS: BASO % 1.1 % (0-2.0); HEMATOCRIT 30.4 % (32.4-45.2); HEMOGLOBIN 10.4 GM/dL (10.7-15.3); LYMPH % 37.6 % (8-40); MCH 33.1 pg (25.7-33.7); MCHC 34.3 g/dl (32.0-36.0); MEAN CELL VOLUME 96.4 fl (80-96); MEAN PLT VOLUME 7.9 fl (7.5-11.1); MONO % 5.2 % (3.8-10.2); NEUT % 54.1 % (42.8-82.8); PLATELET COUNT 952 K/MM3 (134-434); RBC 3.15 M/mm3 (3.60-5.2); RDW 15.8 % (11.6-15.6); WHITE BLOOD COUNT 4.5 K/mm3 (4.0-10.0)
[2020-12-26 09:01] LABS: POTASSIUM 5.4 mmol/L (3.5-5.1)
[2020-12-26 09:15] LABS: ALBUMIN 3.1 g/dl (3.4-5.0); BLOOD UREA NITROGEN 46.7 mg/dL (7-18)
[2020-12-26 09:17] LABS: CALCIUM 9.6 mg/dL (8.5-10.1); MAGNESIUM 2.3 mg/dL (1.8-2.4)
[2020-12-26 09:20] LABS: PHOSPHOROUS 4.7 mg/dL (2.5-4.9)
[2020-12-26 09:22] LABS: BILIRUBIN,TOTAL 0.4 mg/dL (0.2-1); CREATININE 1.4 mg/dL (0.55-1.3); TOT PROT 6.8 g/dl (6.4-8.2)
[2020-12-26] MEDS: metoPROLOL SUCCINATE 25 MG TAB.SR.24H (FP) PO SCH (09:25)
[2020-12-26] MEDS: ANAGRELIDE HCL 0.5 MG CAPSULE PO SCH ×2 (09:26→21:35)
[2020-12-26] MEDS: ASPIRIN COATED 81 MG TABLET.EC PO SCH (09:26)
[2020-12-26] MEDS: ALLOPURINOL 300 MG TABLET (FP) PO SCH (09:26)
[2020-12-26] MEDS: BUDESONIDE/FORMETEROL FUMARATE 80/4.5 mcg INHALER IH SCH ×2 (09:27→21:43)
[2020-12-26] MEDS: POLYETHYLENE GLYCOL 3350 119 GM BTL PO SCH (09:32)
[2020-12-26] MEDS: ENOXAPARIN NA (PORCINE) 40 MG/0.4 ML DISP.SYRIN SQ SCH ×2 (09:32→21:40)
[2020-12-26] MEDS: SODIUM ZIRCONIUM CYCLOSILICATE (LOKELMA) 5 GM PACKET PO SCH ×2 (14:04→17:57)
[2020-12-26] MEDS ORDERED: SODIUM CHLORIDE 0.45% 1,000 ML IV SCH (14:45)
[2020-12-26] MEDS: HYDROXYUREA 500 MG CAPSULE PO SCH ×2 (17:40→21:39)
[2020-12-26] MEDS: SENNOSIDES 8.6MG TABLET (FP) PO SCH (21:40)
[2020-12-26] MEDS: MELATONIN 5 MG TABLETS PO SCH (21:40)
[2020-12-26] MEDS: diphenhydrAMINE HCL 25 MG CAPSULE (FP) PO PRN (22:22)
[2020-12-27] MEDS: ANAGRELIDE HCL 0.5 MG CAPSULE PO SCH ×2 (10:16→21:40)
[2020-12-27] MEDS: ALLOPURINOL 300 MG TABLET (FP) PO SCH (10:16)
[2020-12-27] MEDS: HYDROXYUREA 500 MG CAPSULE PO SCH ×2 (10:16→21:42)
[2020-12-27] MEDS: metoPROLOL SUCCINATE 25 MG TAB.SR.24H (FP) PO SCH (10:16)
[2020-12-27] MEDS: ASPIRIN COATED 81 MG TABLET.EC PO SCH (10:16)
[2020-12-27] MEDS: BUDESONIDE/FORMETEROL FUMARATE 80/4.5 mcg INHALER IH SCH ×2 (10:17→21:43)
[2020-12-27] MEDS: ENOXAPARIN NA (PORCINE) 40 MG/0.4 ML DISP.SYRIN SQ SCH ×2 (10:17→21:41)
[2020-12-27] MEDS: POLYETHYLENE GLYCOL 3350 119 GM BTL PO SCH (10:17)
[2020-12-27] MEDS: SODIUM ZIRCONIUM CYCLOSILICATE (LOKELMA) 5 GM PACKET PO SCH (10:20)
[2020-12-27] MEDS ORDERED: PT OWN MED DRAWER 7, Y5N ONE ×3 (10:30→20:39)
[2020-12-27] MEDS: SODIUM CHLORIDE 0.45% 1,000 ML IV SCH (21:38)
[2020-12-27] MEDS: MELATONIN 5 MG TABLETS PO SCH (21:39)
[2020-12-27] MEDS: diphenhydrAMINE HCL 25 MG CAPSULE (FP) PO PRN (21:41)
[2020-12-27] MEDS: SENNOSIDES 8.6MG TABLET (FP) PO SCH (21:42)
[2020-12-28] MEDS: SODIUM CHLORIDE 0.45% 1,000 ML IV SCH (05:45)
[2020-12-28 09:24] LABS: HEMATOCRIT 28.1 % (32.4-45.2); HEMOGLOBIN 9.6 GM/dL (10.7-15.3); MCH 33.3 pg (25.7-33.7); MCHC 34.2 g/dl (32.0-36.0); MEAN CELL VOLUME 97.3 fl (80-96); MEAN PLT VOLUME 8.4 fl (7.5-11.1); PLATELET COUNT 666 K/MM3 (134-434); RBC 2.89 M/mm3 (3.60-5.2); RDW 15.9 % (11.6-15.6); WHITE BLOOD COUNT 4.1 K/mm3 (4.0-10.0)
[2020-12-28 09:42] LABS: POTASSIUM 4.8 mmol/L (3.5-5.1)
[2020-12-28] MEDS ORDERED: PT OWN MED DRAWER 7, Y5N ONE ×3 (09:46→20:17)
[2020-12-28] MEDS: HYDROXYUREA 500 MG CAPSULE PO SCH ×2 (09:58→14:21)
[2020-12-28] MEDS: ALLOPURINOL 300 MG TABLET (FP) PO SCH (09:58)
[2020-12-28] MEDS: ASPIRIN COATED 81 MG TABLET.EC PO SCH (09:58)
[2020-12-28] MEDS: ANAGRELIDE HCL 0.5 MG CAPSULE PO SCH ×3 (09:59→21:01)
[2020-12-28] MEDS: metoPROLOL SUCCINATE 25 MG TAB.SR.24H (FP) PO SCH (09:59)
[2020-12-28] MEDS: POLYETHYLENE GLYCOL 3350 119 GM BTL PO SCH (09:59)
[2020-12-28] MEDS: ENOXAPARIN NA (PORCINE) 40 MG/0.4 ML DISP.SYRIN SQ SCH ×2 (09:59→21:01)
[2020-12-28] MEDS: SODIUM ZIRCONIUM CYCLOSILICATE (LOKELMA) 5 GM PACKET PO SCH (10:00)
[2020-12-28 10:02] LABS: CALCIUM 9.3 mg/dL (8.5-10.1); MAGNESIUM 2.2 mg/dL (1.8-2.4)
[2020-12-28 10:07] LABS: CREATININE 1.4 mg/dL (0.55-1.3)
[2020-12-28] MEDS: BUDESONIDE/FORMETEROL FUMARATE 80/4.5 mcg INHALER IH SCH ×2 (10:07→21:02)
[2020-12-28] MEDS: diphenhydrAMINE HCL 25 MG CAPSULE (FP) PO PRN (21:01)
[2020-12-28] MEDS: MELATONIN 5 MG TABLETS PO SCH (21:01)
[2020-12-28] MEDS: SENNOSIDES 8.6MG TABLET (FP) PO SCH (21:02)
[2020-12-29] MEDS ORDERED: PT OWN MED DRAWER 7, Y5N ONE (10:24)
[2020-12-29] MEDS: ASPIRIN COATED 81 MG TABLET.EC PO SCH (10:26)
[2020-12-29] MEDS: ANAGRELIDE HCL 0.5 MG CAPSULE PO SCH (10:26)
[2020-12-29] MEDS: HYDROXYUREA 500 MG CAPSULE PO SCH (10:27)
[2020-12-29] MEDS: SODIUM ZIRCONIUM CYCLOSILICATE (LOKELMA) 5 GM PACKET PO SCH (10:27)
[2020-12-29] MEDS: POLYETHYLENE GLYCOL 3350 119 GM BTL PO SCH (10:28)
[2020-12-29] MEDS: ENOXAPARIN NA (PORCINE) 40 MG/0.4 ML DISP.SYRIN SQ SCH (10:29)
[2020-12-29] MEDS: metoPROLOL SUCCINATE 25 MG TAB.SR.24H (FP) PO SCH (10:29)
[2020-12-29] MEDS: ALLOPURINOL 300 MG TABLET (FP) PO SCH (10:29)
[2020-12-29] MEDS: BUDESONIDE/FORMETEROL FUMARATE 80/4.5 mcg INHALER IH SCH (10:29)
[2020-12-29 14:10] LABS: BASO % 1.2 % (0-2.0); EOS % 1.1 % (0-4.5); HEMATOCRIT 29.4 % (32.4-45.2); HEMOGLOBIN 9.9 GM/dL (10.7-15.3); LYMPH % 27.9 % (8-40); MCH 33.1 pg (25.7-33.7); MCHC 33.5 g/dl (32.0-36.0); MEAN CELL VOLUME 98.5 fl (80-96); MEAN PLT VOLUME 8.6 fl (7.5-11.1); MONO % 2.5 % (3.8-10.2); NEUT % 67.3 % (42.8-82.8); PLATELET COUNT 513 K/MM3 (134-434); RBC 2.99 M/mm3 (3.60-5.2); RDW 16.3 % (11.6-15.6); WHITE BLOOD COUNT 4.8 K/mm3 (4.0-10.0)
[2020-12-29 14:25] LABS: POTASSIUM 3.7 mmol/L (3.5-5.1)
[2020-12-29 14:27] LABS: CALCIUM 9.4 mg/dL (8.5-10.1)
[2020-12-29 14:28] LABS: ALBUMIN 3.1 g/dl (3.4-5.0); BLOOD UREA NITROGEN 33.8 mg/dL (7-18)
[2020-12-29 14:31] LABS: CREATININE 1.5 mg/dL (0.55-1.3)
[2020-12-29 14:32] LABS: TOT PROT 6.6 g/dl (6.4-8.2)
[2020-12-29 14:39] LABS: BILIRUBIN,TOTAL 0.4 mg/dL (0.2-1)
[2020-12-29 15:55] VITALS: BP 128/61; PULSE 106; TEMP 98.1
== END 2020-12-29 20:05 | DRG 300 ==
LOC: JER 19:03 → JERBED 22:50 → J8W 12-09 21:32
PROVIDERS: ADMIT Hospitalist; ATTEND Internal Medicine
DX: I70.268 Atherosclerosis of native arteries of extremities with gangrene, other extremity (principal); T34.832A Frostbite with tissue necrosis of left toe(s), initial encounter; T34.831A Frostbite with tissue necrosis of right toe(s), initial encounter; D68.8 Other specified coagulation defects; N17.9 Acute kidney failure, unspecified; N39.0 Urinary tract infection, site not specified; E44.0 Moderate protein-calorie malnutrition; X31.XXXA Exposure to excessive natural cold, initial encounter; Y93.89 Activity, other specified; Y92.89 Other specified places as the place of occurrence of the external cause; J44.9 Chronic obstructive pulmonary disease, unspecified; I12.9 Hypertensive chronic kidney disease with stage 1 through stage 4 chronic kidney disease, or unspecified chronic kidney disease; N18.30 Chronic kidney disease, stage 3 unspecified; T68.XXXA Hypothermia, initial encounter; D72.829 Elevated white blood cell count, unspecified; D47.3 Essential (hemorrhagic) thrombocythemia; E87.5 Hyperkalemia; D50.0 Iron deficiency anemia secondary to blood loss (chronic); F17.210 Nicotine dependence, cigarettes, uncomplicated; B96.4 Proteus (mirabilis) (morganii) as the cause of diseases classified elsewhere; I77.1 Stricture of artery; R00.0 Tachycardia, unspecified; Z68.20 Body mass index [BMI] 20.0-20.9, adult
CPT/HCPCS: 36415; 71045-TC-FY; 76705-TC; 80048; 80053; 81003; 82272; 82550; 82553; 82668; 82728; 83540; 83550; 83605; 83615; 83735; 84100; 84132; 84550; 85025; 85027; 85240; 85246; 85247; 85610; 85730; 86850; 86900; 86901; 87040; 87070; 87086; 87186; 87205; 88300-TC; 90715; 93005; 93010; 93925-TC; 97116-GP; 97162-GP; 99285-25; C9803; J1644; J8999; U0003

== ENCOUNTER 2021-01-19 05:17 | Day surgery (SDC) | payer OTHER ==
[2021-01-19] MEDS ORDERED: SUCCINYLCHOLINE CHLORIDE 200 MG/10 ML SYRINGE ONE ×2 (10:12→11:33)
[2021-01-19 10:44] VITALS: BMI 20.5
[2021-01-19] MEDS ORDERED: PROPOFOL 20 ML ONE ×2 (11:34)
[2021-01-19] MEDS ORDERED: LIDOCAINE HCL/PF 2% SDV 5ML VIAL ONE (12:24)
[2021-01-19] MEDS ORDERED: ceFAZolin SODIUM 1 GM VIAL ONE (12:24)
[2021-01-19] MEDS ORDERED: LIDOCAINE HCL 1%, 10 MG/ML (20ML VIAL) PNB ONE (13:00)
[2021-01-19 15:58] VITALS: TEMP 97.3
[2021-01-19 16:42] VITALS: BP 125/70; PULSE 72
== END 2021-01-19 16:35 | disposition home or self-care (01) ==
LOC: JASU-SURG 05:17
PROVIDERS: ATTEND Surgery Vascular Surgery
PROC: B41DYZZ Fluoroscopy of Aorta and Bilateral Lower Extremity Arteries using Other Contrast (ICD-10-PCS; principal; 2021-01-19 11:30)
DX: I96 Gangrene, not elsewhere classified (principal); I10 Essential (primary) hypertension; J44.9 Chronic obstructive pulmonary disease, unspecified; Z87.891 Personal history of nicotine dependence
CPT/HCPCS: 76000-TC-FY; 94760

== ENCOUNTER 2021-01-26 05:32 | Day surgery (SDC) | payer OTHER ==
[2021-01-25 13:19] VITALS: BMI 20.5
[2021-01-26] MEDS ORDERED: LIDOCAINE HCL 1%, 10 MG/ML (20ML VIAL) ONE (10:45)
[2021-01-26] MEDS ORDERED: HEPARIN NA (PORCINE) 5,000 UNITS/ML 1ML VIAL ONE (10:45)
[2021-01-26] MEDS ORDERED: PROPOFOL 20 ML ONE (11:12)
[2021-01-26] MEDS ORDERED: MIDAZOLAM HCL 2 MG/2 ML SINGLE DOSE VIAL ONE (11:12)
[2021-01-26] MEDS ORDERED: LIDOCAINE HCL 1%, 10 MG/ML (20ML VIAL) INF ONE (11:25)
[2021-01-26] MEDS ORDERED: ONDANSETRON 4 MG/2 ML VIAL IVPUSH PRN (11:55)
[2021-01-26] MEDS ORDERED: oxyCODONE HCL 5 MG TABLET PO PRN (11:55)
[2021-01-26] MEDS ORDERED: CLOPIDOGREL BISULFATE 75 MG TABLET (FP) PO ONE (12:48)
[2021-01-26 16:21] VITALS: TEMP 98.4
[2021-01-26 16:37] VITALS: BP 137/64; PULSE 98
== END 2021-01-26 14:30 | disposition home or self-care (01) ==
LOC: JASU-SURG 05:32
PROVIDERS: ATTEND Surgery Vascular Surgery
PROC: 047K3DZ Dilation of Right Femoral Artery with Intraluminal Device, Percutaneous Approach (ICD-10-PCS; principal; 2021-01-26 10:30)
DX: I70.261 Atherosclerosis of native arteries of extremities with gangrene, right leg (principal); C94.6 Myelodysplastic disease, not elsewhere classified; I12.9 Hypertensive chronic kidney disease with stage 1 through stage 4 chronic kidney disease, or unspecified chronic kidney disease; N18.30 Chronic kidney disease, stage 3 unspecified
CPT/HCPCS: 37226; C1877; 76000-TC-FY; 94760; J1644

== ENCOUNTER 2021-05-31 12:39 | Inpatient (IN) | payer OTHER ==
[2021-05-31] MEDS ORDERED: ACETAMINOPHEN 1000 MG/100 ML VIAL (NON FORMULARY) IVPB ONE (13:41)
[2021-05-31] MEDS ORDERED: PIPERACILLIN/TAZOB 4.5 GM 4.5 GM in DEXTROSE 5%-WATER 100 ML IVPB ONE (13:41)
[2021-05-31] MEDS ORDERED: VANCOMYCIN 1 GM in D5W (PRE-DOCKED) 1,000 MG/250 ML IVPB ONE (13:41)
[2021-05-31] MEDS ORDERED: ACETAMINOPHEN INJECTION 100 ML IVPB ONE (14:40)
[2021-05-31] MEDS ORDERED: PIPERACILLIN/TAZOB 4.5 GM 4.5 GM/100 ML BAG IVPB ONE (14:40)
[2021-05-31] MEDS ORDERED: VANCOMYCIN 1 GRAM (PRE-DOCKED) 1,000 MG/250 ML BAG IVPB ONE (14:40)
[2021-05-31 15:07] LABS: BASO % 0.4 % (0-2.0); EOS % 0.7 % (0-4.5); HEMATOCRIT 25.9 % (32.4-45.2); HEMOGLOBIN 8.7 GM/dL (10.7-15.3); LYMPH % 34.1 % (8-40); MCHC 33.7 g/dl (32.0-36.0); MEAN CELL VOLUME 122.3 fl (80-96); MEAN PLT VOLUME 6.9 fl (7.5-11.1); NEUT % 54.8 % (42.8-82.8); PLATELET COUNT 501 10^3/uL (134-434); RBC 2.12 M/mm3 (3.60-5.2); RDW 16.2 % (11.6-15.6)
[2021-05-31 15:11] LABS: MCH 41.2 pg (25.7-33.7)
[2021-05-31 15:19] LABS: INR 1.03 (0.83-1.09); PROTHROMBIN TIME (PATIENT) 12.6 SEC (9.7-13.0)
[2021-05-31 15:30] LABS: ALBUMIN 3.5 g/dl (3.4-5.0); CALCIUM 9.4 mg/dL (8.5-10.1)
[2021-05-31 15:31] LABS: BLOOD UREA NITROGEN 37.6 mg/dL (7-18)
[2021-05-31 15:34] LABS: CREATININE 1.7 mg/dL (0.55-1.3)
[2021-05-31 15:35] LABS: BILIRUBIN,TOTAL 0.4 mg/dL (0.2-1); TOT PROT 7.9 g/dl (6.4-8.2)
[2021-05-31 15:41] LABS: ANISOCYTOSIS 2+; MACROCYTOSIS 2+; PLATELET ESTIMATE INCREASED
[2021-05-31] MEDS ORDERED: POLYETHYLENE GLYCOL (HEALTHYLAX) 3350 17 GM PACKET PO PRN (17:16)
[2021-05-31] MEDS ORDERED: PIPERACILLIN/TAZOB 2.25 GM 2.25 GM/50 ML BAG IVPB ONE (18:08)
[2021-05-31] MEDS: PIPERACILLIN/TAZOB 2.25 GM 2.25 GM in DEXTROSE 5%-WATER - 50 ML IVPB SCH (18:12)
[2021-05-31] MEDS: MELATONIN 5 MG TABLETS PO SCH (21:25)
[2021-05-31] MEDS: traMADol HCL 50 MG TABLET PO PRN (21:25)
[2021-05-31] MEDS: GABAPENTIN 300 MG CAPSULE PO SCH (21:26)
[2021-05-31] MEDS: HEPARIN NA (PORCINE) 5,000 UNITS/ML 1ML VIAL SQ SCH (21:29)
[2021-05-31] MEDS ORDERED: HYDROXYUREA 500 MG CAPSULE PO SCH ×2 (22:00)
[2021-06-01] MEDS ORDERED: PIPERACILLIN/TAZOBACTAM 2.25 GM VIAL IVPB ONE ×2 (01:26→10:44)
[2021-06-01] MEDS ORDERED: DEXTROSE 5%-WATER - 50 ML IVPB ONE ×3 (01:26→18:16)
[2021-06-01] MEDS: PIPERACILLIN/TAZOB 2.25 GM 2.25 GM in DEXTROSE 5%-WATER - 50 ML IVPB SCH ×4 (01:32→19:45)
[2021-06-01] MEDS: traMADol HCL 50 MG TABLET PO PRN ×2 (01:54→06:05)
[2021-06-01] MEDS: HEPARIN NA (PORCINE) 5,000 UNITS/ML 1ML VIAL SQ SCH (06:10)
[2021-06-01 09:01] LABS: BASO % 0.3 % (0-2.0); EOS % 1.1 % (0-4.5); HEMATOCRIT 22.5 % (32.4-45.2); HEMOGLOBIN 7.7 GM/dL (10.7-15.3); LYMPH % 34.2 % (8-40); MCHC 34.1 g/dl (32.0-36.0); MEAN CELL VOLUME 122.1 fl (80-96); MEAN PLT VOLUME 6.7 fl (7.5-11.1); MONO % 12.7 % (3.8-10.2); NEUT % 51.7 % (42.8-82.8); PLATELET COUNT 422 10^3/uL (134-434); RBC 1.84 M/mm3 (3.60-5.2); RDW 15.9 % (11.6-15.6); WHITE BLOOD COUNT 4.1 K/mm3 (4.0-10.0)
[2021-06-01 09:02] LABS: MCH 41.7 pg (25.7-33.7)
[2021-06-01 09:16] LABS: CALCIUM 8.8 mg/dL (8.5-10.1)
[2021-06-01 09:17] LABS: ALBUMIN 2.9 g/dl (3.4-5.0); BLOOD UREA NITROGEN 36.7 mg/dL (7-18); MAGNESIUM 2.2 mg/dL (1.8-2.4)
[2021-06-01 09:20] LABS: BILIRUBIN,TOTAL 0.3 mg/dL (0.2-1); CREATININE 1.8 mg/dL (0.55-1.3); TOT PROT 6.5 g/dl (6.4-8.2)
[2021-06-01] MEDS ORDERED: HYDROXYUREA 500 MG CAPSULE PO SCH ×2 (10:00)
[2021-06-01] MEDS: GABAPENTIN 300 MG CAPSULE PO SCH ×2 (10:53→21:05)
[2021-06-01] MEDS: ALLOPURINOL 300 MG TABLET (FP) PO SCH (10:53)
[2021-06-01] MEDS: ESCITALOPRAM OXALATE 20 MG TABLET PO SCH (10:54)
[2021-06-01] MEDS: LACTATED RINGERS SOLUTION 1,000 ML/1,000 ML INFUS.BAG IV SCH (12:39)
[2021-06-01] MEDS: MORPHINE SULFATE 2 MG/ML VIAL IVPUSH PRN ×2 (14:48→19:53)
[2021-06-01] MEDS: metoPROLOL SUCCINATE 25 MG TAB.SR.24H (FP) PO SCH (14:50)
[2021-06-01] MEDS ORDERED: PIPERACILLIN/TAZOBACTAM 3.375 GM VIAL IVPB ONE (18:16)
[2021-06-01] MEDS: PIPERACILLIN/TAZOB 3.375 GM 3.375 GM in DEXTROSE 5%-WATER - 50 ML IVPB SCH (18:23)
[2021-06-01] MEDS: MELATONIN 5 MG TABLETS PO SCH (21:05)
[2021-06-02] MEDS ORDERED: DEXTROSE 5%-WATER - 50 ML IVPB ONE ×2 (00:36→18:34)
[2021-06-02] MEDS ORDERED: PIPERACILLIN/TAZOBACTAM 3.375 GM VIAL IVPB ONE ×2 (00:36→18:34)
[2021-06-02] MEDS: PIPERACILLIN/TAZOB 3.375 GM 3.375 GM in DEXTROSE 5%-WATER - 50 ML IVPB SCH ×3 (01:21→18:39)
[2021-06-02] MEDS: LACTATED RINGERS SOLUTION 1,000 ML/1,000 ML INFUS.BAG IV SCH ×2 (05:20→10:51)
[2021-06-02] MEDS: MORPHINE SULFATE 2 MG/ML VIAL IVPUSH PRN ×2 (06:13→11:40)
[2021-06-02] MEDS ORDERED: BUPIVACAINE HCL/PF 0.5% (5MG/ML) 10 ML VIAL ONE (07:18)
[2021-06-02] MEDS ORDERED: LIDOCAINE HCL 1%, 10 MG/ML (20ML VIAL) ONE (07:18)
[2021-06-02] MEDS ORDERED: BACITRACIN 15 GM TUBE TOPICAL OINTMENT ONE (07:28)
[2021-06-02] MEDS ORDERED: PROPOFOL 20 ML ONE ×3 (07:48→08:45)
[2021-06-02] MEDS ORDERED: MIDAZOLAM HCL 2 MG/2 ML SINGLE DOSE VIAL ONE ×2 (07:49)
[2021-06-02] MEDS ORDERED: THROMBIN (BOVINE) 5,000 UNIT VIAL TP ONE ×2 (08:25→08:54)
[2021-06-02 08:31] LABS: BASO % 0.2 % (0-2.0); EOS % 0.9 % (0-4.5); HEMATOCRIT 19.9 % (32.4-45.2); LYMPH % 33.4 % (8-40); MCHC 34.3 g/dl (32.0-36.0); MEAN CELL VOLUME 121.3 fl (80-96); MEAN PLT VOLUME 6.7 fl (7.5-11.1); MONO % 15.4 % (3.8-10.2); NEUT % 50.1 % (42.8-82.8); PLATELET COUNT 373 10^3/uL (134-434); RBC 1.64 M/mm3 (3.60-5.2); RDW 15.9 % (11.6-15.6); WHITE BLOOD COUNT 4.4 K/mm3 (4.0-10.0)
[2021-06-02 08:35] LABS: MCH 41.5 pg (25.7-33.7)
[2021-06-02 08:36] LABS: HEMOGLOBIN 6.8 GM/dL (10.7-15.3)
[2021-06-02] MEDS ORDERED: FUROSEMIDE 40 MG TABLET (FP) PO ONE ×2 (08:43→10:01)
[2021-06-02 08:52] LABS: BLOOD UREA NITROGEN 36.5 mg/dL (7-18); CALCIUM 8.7 mg/dL (8.5-10.1)
[2021-06-02 08:55] LABS: CREATININE 1.8 mg/dL (0.55-1.3)
[2021-06-02] MEDS ORDERED: ceFAZolin SODIUM 1 GM VIAL ONE (09:11)
[2021-06-02] MEDS ORDERED: PROMETHAZINE HCL 25 MG/1 ML VIAL IVPB PRN (09:21)
[2021-06-02] MEDS ORDERED: ONDANSETRON 4 MG/2 ML VIAL IVPUSH PRN (09:21)
[2021-06-02] MEDS ORDERED: HYDROXYUREA 500 MG CAPSULE PO SCH (10:00)
[2021-06-02] MEDS ORDERED: POLYETHYLENE GLYCOL (HEALTHYLAX) 3350 17 GM PACKET PO PRN (10:01)
[2021-06-02] MEDS: ESCITALOPRAM OXALATE 20 MG TABLET PO SCH (10:51)
[2021-06-02] MEDS: metoPROLOL SUCCINATE 25 MG TAB.SR.24H (FP) PO SCH (10:51)
[2021-06-02] MEDS: GABAPENTIN 300 MG CAPSULE PO SCH ×2 (10:51→21:36)
[2021-06-02] MEDS: ALLOPURINOL 300 MG TABLET (FP) PO SCH (10:52)
[2021-06-02] MEDS: oxyCODONE HCL 5 MG TABLET PO PRN ×2 (12:15→18:57)
[2021-06-02 17:54] LABS: BASO % 0.2 % (0-2.0); EOS % 0.2 % (0-4.5); HEMATOCRIT 23.6 % (32.4-45.2); HEMOGLOBIN 8.3 GM/dL (10.7-15.3); LYMPH % 13.8 % (8-40); MCH 37.8 pg (25.7-33.7); MEAN CELL VOLUME 107.8 fl (80-96); MONO % 10.9 % (3.8-10.2); NEUT % 74.9 % (42.8-82.8); PLATELET COUNT 337 10^3/uL (134-434); RBC 2.19 M/mm3 (3.60-5.2); RDW 26.7 % (11.6-15.6)
[2021-06-02 17:56] LABS: ADD RBC MORPHOLOGY YES
[2021-06-02] MEDS: ACETAMINOPHEN 325 MG TABLET (FP) PO PRN (18:55)
[2021-06-02] MEDS ORDERED: PT OWN MED DRAWER 7, Y5N ONE (21:26)
[2021-06-02] MEDS: HYDROXYUREA 500 MG CAPSULE PO SCH (21:36)
[2021-06-02] MEDS: MELATONIN 5 MG TABLETS PO SCH (21:36)
[2021-06-03] MEDS ORDERED: PIPERACILLIN/TAZOBACTAM 3.375 GM VIAL IVPB ONE ×3 (01:07→17:31)
[2021-06-03] MEDS ORDERED: DEXTROSE 5%-WATER - 50 ML IVPB ONE ×3 (01:07→17:31)
[2021-06-03] MEDS: oxyCODONE HCL 5 MG TABLET PO PRN (01:13)
[2021-06-03] MEDS: PIPERACILLIN/TAZOB 3.375 GM 3.375 GM in DEXTROSE 5%-WATER - 50 ML IVPB SCH ×3 (01:15→17:39)
[2021-06-03] MEDS: MORPHINE SULFATE 2 MG/ML VIAL IVPUSH PRN ×2 (08:59→15:02)
[2021-06-03] MEDS: GABAPENTIN 300 MG CAPSULE PO SCH ×2 (09:09→21:32)
[2021-06-03] MEDS: ESCITALOPRAM OXALATE 20 MG TABLET PO SCH (09:10)
[2021-06-03] MEDS: HYDROXYUREA 500 MG CAPSULE PO SCH ×2 (09:10→21:32)
[2021-06-03] MEDS: ALLOPURINOL 300 MG TABLET (FP) PO SCH (09:10)
[2021-06-03] MEDS: ASPIRIN 81 MG CHEWABLE TABLETS PO SCH (09:10)
[2021-06-03] MEDS: LACTATED RINGERS SOLUTION 1,000 ML/1,000 ML INFUS.BAG IV SCH (09:11)
[2021-06-03] MEDS ORDERED: metoPROLOL SUCCINATE 25 MG TAB.SR.24H (FP) PO SCH (10:00)
[2021-06-03] MEDS ORDERED: SODIUM CHLORIDE 250 ML IV STA (11:59)
[2021-06-03] MEDS: ACETAMINOPHEN 325 MG TABLET (FP) PO PRN (17:48)
[2021-06-03] MEDS ORDERED: PT OWN MED DRAWER 7, Y5N ONE (21:15)
[2021-06-03] MEDS: MELATONIN 5 MG TABLETS PO SCH (21:33)
[2021-06-04] MEDS ORDERED: PIPERACILLIN/TAZOBACTAM 3.375 GM VIAL IVPB ONE ×3 (01:34→16:47)
[2021-06-04] MEDS ORDERED: DEXTROSE 5%-WATER - 50 ML IVPB ONE ×3 (01:34→16:47)
[2021-06-04] MEDS: PIPERACILLIN/TAZOB 3.375 GM 3.375 GM in DEXTROSE 5%-WATER - 50 ML IVPB SCH ×3 (03:03→17:06)
[2021-06-04] MEDS: LACTATED RINGERS SOLUTION 1,000 ML/1,000 ML INFUS.BAG IV SCH ×2 (04:21→19:48)
[2021-06-04 09:39] LABS: HEMOGLOBIN 9.5 GM/dL (10.7-15.3); MCH 37.3 pg (25.7-33.7); MCHC 35.4 g/dl (32.0-36.0); MEAN CELL VOLUME 105.4 fl (80-96); MEAN PLT VOLUME 6.4 fl (7.5-11.1); PLATELET COUNT 343 10^3/uL (134-434); RBC 2.56 M/mm3 (3.60-5.2); RDW 26.3 % (11.6-15.6); WHITE BLOOD COUNT 4.6 K/mm3 (4.0-10.0)
[2021-06-04] MEDS: ASPIRIN 81 MG CHEWABLE TABLETS PO SCH (09:42)
[2021-06-04] MEDS: HYDROXYUREA 500 MG CAPSULE PO SCH ×2 (09:42→21:25)
[2021-06-04] MEDS: ESCITALOPRAM OXALATE 20 MG TABLET PO SCH (09:42)
[2021-06-04] MEDS: ALLOPURINOL 300 MG TABLET (FP) PO SCH (09:42)
[2021-06-04] MEDS: GABAPENTIN 300 MG CAPSULE PO SCH ×2 (09:42→21:24)
[2021-06-04] MEDS ORDERED: ALBUTEROL SO4 2.5/IPRATROPIUM 0.5 INH SOL 3 ML VIAL.NEB. NEB PRN (11:01)
[2021-06-04 11:15] LABS: BLOOD UREA NITROGEN 24.5 mg/dL (7-18); CALCIUM 8.6 mg/dL (8.5-10.1); CREATININE 1.5 mg/dL (0.55-1.3)
[2021-06-04] MEDS: metoPROLOL SUCCINATE 25 MG TAB.SR.24H (FP) PO SCH (12:13)
[2021-06-04] MEDS ORDERED: PT OWN MED DRAWER 7, Y5N ONE (21:23)
[2021-06-04] MEDS: MELATONIN 5 MG TABLETS PO SCH (21:25)
[2021-06-05] MEDS ORDERED: PIPERACILLIN/TAZOBACTAM 3.375 GM VIAL IVPB ONE ×3 (00:59→17:17)
[2021-06-05] MEDS ORDERED: DEXTROSE 5%-WATER - 50 ML IVPB ONE ×3 (00:59→17:17)
[2021-06-05] MEDS: PIPERACILLIN/TAZOB 3.375 GM 3.375 GM in DEXTROSE 5%-WATER - 50 ML IVPB SCH ×3 (01:04→18:15)
[2021-06-05 09:18] LABS: INR 1.08 (0.83-1.09)
[2021-06-05] MEDS: ESCITALOPRAM OXALATE 20 MG TABLET PO SCH (10:59)
[2021-06-05] MEDS: ACETAMINOPHEN 325 MG TABLET (FP) PO PRN (10:59)
[2021-06-05] MEDS: ASPIRIN 81 MG CHEWABLE TABLETS PO SCH (10:59)
[2021-06-05] MEDS: ALLOPURINOL 300 MG TABLET (FP) PO SCH (10:59)
[2021-06-05] MEDS: metoPROLOL SUCCINATE 25 MG TAB.SR.24H (FP) PO SCH (10:59)
[2021-06-05] MEDS: GABAPENTIN 300 MG CAPSULE PO SCH ×2 (10:59→21:18)
[2021-06-05] MEDS: HYDROXYUREA 500 MG CAPSULE PO SCH ×2 (13:51→21:18)
[2021-06-05] MEDS: LACTATED RINGERS SOLUTION 1,000 ML/1,000 ML INFUS.BAG IV SCH (13:52)
[2021-06-05 16:47] VITALS: BMI 20.4
[2021-06-05] MEDS: MELATONIN 5 MG TABLETS PO SCH (21:18)
[2021-06-06] MEDS ORDERED: PIPERACILLIN/TAZOBACTAM 3.375 GM VIAL IVPB ONE ×3 (01:34→17:32)
[2021-06-06] MEDS ORDERED: DEXTROSE 5%-WATER - 50 ML IVPB ONE ×3 (01:34→17:32)
[2021-06-06] MEDS: PIPERACILLIN/TAZOB 3.375 GM 3.375 GM in DEXTROSE 5%-WATER - 50 ML IVPB SCH ×4 (02:03→18:03)
[2021-06-06] MEDS: LACTATED RINGERS SOLUTION 1,000 ML/1,000 ML INFUS.BAG IV SCH ×3 (05:29→11:05)
[2021-06-06] MEDS ORDERED: BUPIVACAINE HCL/PF 0.5% (5MG/ML) 10 ML VIAL ONE ×2 (07:20→07:31)
[2021-06-06] MEDS ORDERED: LIDOCAINE HCL 1%, 10 MG/ML (20ML VIAL) ONE ×3 (07:20→09:25)
[2021-06-06] MEDS ORDERED: PROPOFOL 20 ML ONE ×4 (07:26→09:07)
[2021-06-06] MEDS ORDERED: SUCCINYLCHOLINE CHLORIDE 200 MG/10 ML SYRINGE ONE (07:27)
[2021-06-06] MEDS ORDERED: MIDAZOLAM HCL 2 MG/2 ML SINGLE DOSE VIAL ONE (07:27)
[2021-06-06] MEDS ORDERED: LIDOCAINE HCL 1%, 10 MG/ML (20ML VIAL) PNB ONE (07:53)
[2021-06-06] MEDS ORDERED: BUPIVACAINE HCL/PF 0.5% (5 MG/ML) 30 ML VIAL IJ ONE (07:53)
[2021-06-06] MEDS ORDERED: BACITRACIN 50,000 UNITS VIAL TP ONE ×2 (08:55)
[2021-06-06] MEDS: ASPIRIN 81 MG CHEWABLE TABLETS PO SCH (10:09)
[2021-06-06] MEDS: HYDROXYUREA 500 MG CAPSULE PO SCH ×2 (10:09→21:05)
[2021-06-06] MEDS: ESCITALOPRAM OXALATE 20 MG TABLET PO SCH (10:09)
[2021-06-06] MEDS: metoPROLOL SUCCINATE 25 MG TAB.SR.24H (FP) PO SCH (10:10)
[2021-06-06] MEDS: GABAPENTIN 300 MG CAPSULE PO SCH ×2 (10:10→21:06)
[2021-06-06] MEDS: ALLOPURINOL 300 MG TABLET (FP) PO SCH (10:10)
[2021-06-06] MEDS ORDERED: ONDANSETRON 4 MG/2 ML VIAL IVPUSH PRN (10:58)
[2021-06-06 11:00] LABS: BASO % 0.3 % (0-2.0); EOS % 0.9 % (0-4.5); HEMATOCRIT 25.4 % (32.4-45.2); LYMPH % 29.8 % (8-40); MCH 38.1 pg (25.7-33.7); MCHC 35.3 g/dl (32.0-36.0); MEAN CELL VOLUME 107.9 fl (80-96); MEAN PLT VOLUME 6.3 fl (7.5-11.1); PLATELET COUNT 366 10^3/uL (134-434); RBC 2.36 M/mm3 (3.60-5.2); RDW 24.8 % (11.6-15.6); WHITE BLOOD COUNT 4.5 K/mm3 (4.0-10.0)
[2021-06-06] MEDS ORDERED: POLYETHYLENE GLYCOL (HEALTHYLAX) 3350 17 GM PACKET PO PRN (11:03)
[2021-06-06] MEDS ORDERED: ALBUTEROL SO4 2.5/IPRATROPIUM 0.5 INH SOL 3 ML VIAL.NEB. NEB PRN (11:03)
[2021-06-06 13:38] LABS: ANISOCYTOSIS 2+; MACROCYTOSIS 0; OVALOCYTE 1+; PLATELET ESTIMATE NORMAL
[2021-06-06] MEDS ORDERED: oxyCODONE HCL 5 MG TABLET PO PRN (13:40)
[2021-06-06] MEDS ORDERED: MORPHINE SULFATE 2 MG/ML VIAL IM ONE (15:26)
[2021-06-06 15:29] LABS: BASO % 0.3 % (0-2.0); EOS % 0.6 % (0-4.5); HEMATOCRIT 27.7 % (32.4-45.2); HEMOGLOBIN 9.6 GM/dL (10.7-15.3); LYMPH % 20.5 % (8-40); MCH 37.1 pg (25.7-33.7); MCHC 34.8 g/dl (32.0-36.0); MEAN CELL VOLUME 106.5 fl (80-96); MONO % 8.3 % (3.8-10.2); NEUT % 70.3 % (42.8-82.8); PLATELET COUNT 392 10^3/uL (134-434); RDW 25.2 % (11.6-15.6)
[2021-06-06 15:45] LABS: ALBUMIN 2.8 g/dl (3.4-5.0); CALCIUM 8.4 mg/dL (8.5-10.1)
[2021-06-06 15:46] LABS: BLOOD UREA NITROGEN 16.9 mg/dL (7-18)
[2021-06-06 15:49] LABS: CREATININE 1.6 mg/dL (0.55-1.3)
[2021-06-06 15:50] LABS: BILIRUBIN,TOTAL 0.9 mg/dL (0.2-1); TOT PROT 6.4 g/dl (6.4-8.2)
[2021-06-06] MEDS ORDERED: PIPERACILLIN/TAZOB 3.375 GM 3.375 GM in DEXTROSE 5%-WATER - 50 ML IVPB SCH (18:00)
[2021-06-06] MEDS ORDERED: MORPHINE SULFATE 2 MG/ML VIAL IM PRN (18:53)
[2021-06-06] MEDS: MORPHINE SULFATE 2 MG/ML VIAL IVPUSH PRN (19:10)
[2021-06-06] MEDS: ACETAMINOPHEN 325 MG TABLET (FP) PO PRN (20:07)
[2021-06-06] MEDS ORDERED: PT OWN MED DRAWER 7, Y5N ONE (20:50)
[2021-06-06] MEDS: MELATONIN 5 MG TABLETS PO SCH (21:06)
[2021-06-07] MEDS ORDERED: PIPERACILLIN/TAZOBACTAM 3.375 GM VIAL IVPB ONE ×3 (01:06→16:42)
[2021-06-07] MEDS ORDERED: DEXTROSE 5%-WATER - 50 ML IVPB ONE ×3 (01:07→16:42)
[2021-06-07] MEDS: PIPERACILLIN/TAZOB 3.375 GM 3.375 GM in DEXTROSE 5%-WATER - 50 ML IVPB SCH ×3 (01:28→17:03)
[2021-06-07] MEDS: LACTATED RINGERS SOLUTION 1,000 ML/1,000 ML INFUS.BAG IV SCH ×2 (02:02→11:30)
[2021-06-07] MEDS: MORPHINE SULFATE 2 MG/ML VIAL IVPUSH PRN (05:59)
[2021-06-07] MEDS: ACETAMINOPHEN 325 MG TABLET (FP) PO PRN (09:06)
[2021-06-07] MEDS ORDERED: PT OWN MED DRAWER 7, Y5N ONE ×2 (09:16→22:14)
[2021-06-07] MEDS: ESCITALOPRAM OXALATE 20 MG TABLET PO SCH (09:19)
[2021-06-07] MEDS: metoPROLOL SUCCINATE 25 MG TAB.SR.24H (FP) PO SCH (09:19)
[2021-06-07] MEDS: GABAPENTIN 300 MG CAPSULE PO SCH ×2 (09:19→22:20)
[2021-06-07] MEDS: ASPIRIN 81 MG CHEWABLE TABLETS PO SCH (09:19)
[2021-06-07] MEDS: ALLOPURINOL 300 MG TABLET (FP) PO SCH (09:19)
[2021-06-07] MEDS: HYDROXYUREA 500 MG CAPSULE PO SCH ×2 (09:20→22:20)
[2021-06-07 11:35] LABS: BASO % 0.5 % (0-2.0); EOS % 0.7 % (0-4.5); HEMATOCRIT 23.8 % (32.4-45.2); HEMOGLOBIN 8.3 GM/dL (10.7-15.3); LYMPH % 23.7 % (8-40); MCH 37.3 pg (25.7-33.7); MCHC 34.8 g/dl (32.0-36.0); MEAN CELL VOLUME 107.1 fl (80-96); MEAN PLT VOLUME 6.4 fl (7.5-11.1); NEUT % 64.1 % (42.8-82.8); PLATELET COUNT 335 10^3/uL (134-434); RBC 2.22 M/mm3 (3.60-5.2); RDW 25.1 % (11.6-15.6); WHITE BLOOD COUNT 4.7 K/mm3 (4.0-10.0)
[2021-06-07] MEDS: MELATONIN 5 MG TABLETS PO SCH (22:20)
[2021-06-08] MEDS ORDERED: DEXTROSE 5%-WATER - 50 ML IVPB ONE ×3 (01:35→18:14)
[2021-06-08] MEDS ORDERED: PIPERACILLIN/TAZOBACTAM 3.375 GM VIAL IVPB ONE ×3 (01:35→18:14)
[2021-06-08] MEDS ORDERED: diphenhydrAMINE HCL 25 MG CAPSULE (FP) PO ONE (01:40)
[2021-06-08] MEDS: PIPERACILLIN/TAZOB 3.375 GM 3.375 GM in DEXTROSE 5%-WATER - 50 ML IVPB SCH ×3 (02:17→18:20)
[2021-06-08] MEDS ORDERED: PT OWN MED DRAWER 7, Y5N ONE ×2 (09:42→20:14)
[2021-06-08] MEDS: ASPIRIN 81 MG CHEWABLE TABLETS PO SCH (09:45)
[2021-06-08] MEDS: ALLOPURINOL 300 MG TABLET (FP) PO SCH (09:46)
[2021-06-08] MEDS: GABAPENTIN 300 MG CAPSULE PO SCH ×2 (09:46→21:14)
[2021-06-08] MEDS: metoPROLOL SUCCINATE 25 MG TAB.SR.24H (FP) PO SCH (09:46)
[2021-06-08] MEDS: ESCITALOPRAM OXALATE 20 MG TABLET PO SCH (09:46)
[2021-06-08] MEDS: HYDROXYUREA 500 MG CAPSULE PO SCH ×2 (09:46→21:14)
[2021-06-08 12:22] LABS: BASO % 0.7 % (0-2.0); EOS % 0.6 % (0-4.5); HEMOGLOBIN 8.5 GM/dL (10.7-15.3); LYMPH % 31.1 % (8-40); MCH 38.2 pg (25.7-33.7); MCHC 35.4 g/dl (32.0-36.0); MEAN PLT VOLUME 6.5 fl (7.5-11.1); MONO % 10.5 % (3.8-10.2); NEUT % 57.1 % (42.8-82.8); PLATELET COUNT 330 10^3/uL (134-434); RBC 2.22 M/mm3 (3.60-5.2); WHITE BLOOD COUNT 3.9 K/mm3 (4.0-10.0)
[2021-06-08 12:53] LABS: ALBUMIN 2.6 g/dl (3.4-5.0); BLOOD UREA NITROGEN 22.1 mg/dL (7-18); CALCIUM 8.2 mg/dL (8.5-10.1)
[2021-06-08 12:57] LABS: CREATININE 1.4 mg/dL (0.55-1.3)
[2021-06-08 12:58] LABS: BILIRUBIN,TOTAL 0.3 mg/dL (0.2-1)
[2021-06-08] MEDS: MELATONIN 5 MG TABLETS PO SCH (21:14)
[2021-06-08] MEDS: ACETAMINOPHEN 325 MG TABLET (FP) PO PRN (21:23)
[2021-06-09] MEDS ORDERED: DEXTROSE 5%-WATER - 50 ML IVPB ONE ×3 (01:14→17:50)
[2021-06-09] MEDS ORDERED: PIPERACILLIN/TAZOBACTAM 3.375 GM VIAL IVPB ONE ×3 (01:14→17:50)
[2021-06-09] MEDS ORDERED: diphenhydrAMINE HCL 25 MG CAPSULE (FP) PO ONE (01:29)
[2021-06-09] MEDS: PIPERACILLIN/TAZOB 3.375 GM 3.375 GM in DEXTROSE 5%-WATER - 50 ML IVPB SCH ×3 (01:34→18:43)
[2021-06-09] MEDS: ACETAMINOPHEN 325 MG TABLET (FP) PO PRN ×2 (04:45→20:42)
[2021-06-09] MEDS: ESCITALOPRAM OXALATE 20 MG TABLET PO SCH (09:39)
[2021-06-09] MEDS: ALLOPURINOL 300 MG TABLET (FP) PO SCH (09:39)
[2021-06-09] MEDS: metoPROLOL SUCCINATE 25 MG TAB.SR.24H (FP) PO SCH (09:39)
[2021-06-09] MEDS: ASPIRIN 81 MG CHEWABLE TABLETS PO SCH (09:39)
[2021-06-09] MEDS: GABAPENTIN 300 MG CAPSULE PO SCH ×2 (09:39→21:01)
[2021-06-09] MEDS ORDERED: PT OWN MED DRAWER 7, Y5N ONE ×2 (10:28→21:02)
[2021-06-09] MEDS: HYDROXYUREA 500 MG CAPSULE PO SCH ×2 (10:32→21:04)
[2021-06-09] MEDS: MORPHINE SULFATE 2 MG/ML VIAL IVPUSH PRN (18:42)
[2021-06-09] MEDS: MELATONIN 5 MG TABLETS PO SCH (21:01)
[2021-06-09] MEDS: diphenhydrAMINE HCL 25 MG CAPSULE (FP) PO PRN (23:05)
[2021-06-10] MEDS ORDERED: DEXTROSE 5%-WATER - 50 ML IVPB ONE ×3 (01:04→16:38)
[2021-06-10] MEDS ORDERED: PIPERACILLIN/TAZOBACTAM 3.375 GM VIAL IVPB ONE ×3 (01:04→16:38)
[2021-06-10] MEDS: PIPERACILLIN/TAZOB 3.375 GM 3.375 GM in DEXTROSE 5%-WATER - 50 ML IVPB SCH ×3 (01:31→17:10)
[2021-06-10] MEDS: ACETAMINOPHEN 325 MG TABLET (FP) PO PRN ×2 (04:00→21:25)
[2021-06-10] MEDS: GABAPENTIN 300 MG CAPSULE PO SCH ×2 (10:27→21:25)
[2021-06-10] MEDS: ESCITALOPRAM OXALATE 20 MG TABLET PO SCH (10:27)
[2021-06-10] MEDS: ASPIRIN 81 MG CHEWABLE TABLETS PO SCH (10:27)
[2021-06-10] MEDS: metoPROLOL SUCCINATE 25 MG TAB.SR.24H (FP) PO SCH (10:27)
[2021-06-10] MEDS: ALLOPURINOL 300 MG TABLET (FP) PO SCH (10:27)
[2021-06-10] MEDS: HYDROXYUREA 500 MG CAPSULE PO SCH ×2 (10:28→21:25)
[2021-06-10] MEDS: traMADol HCL 50 MG TABLET PO PRN ×2 (13:43→22:16)
[2021-06-10] MEDS ORDERED: PT OWN MED DRAWER 7, Y5N ONE (21:22)
[2021-06-10] MEDS: MELATONIN 5 MG TABLETS PO SCH (21:25)
[2021-06-10] MEDS: diphenhydrAMINE HCL 25 MG CAPSULE (FP) PO PRN (21:47)
[2021-06-11] MEDS ORDERED: PIPERACILLIN/TAZOBACTAM 3.375 GM VIAL IVPB ONE ×3 (01:20→16:30)
[2021-06-11] MEDS ORDERED: DEXTROSE 5%-WATER - 50 ML IVPB ONE ×3 (01:20→16:30)
[2021-06-11] MEDS: PIPERACILLIN/TAZOB 3.375 GM 3.375 GM in DEXTROSE 5%-WATER - 50 ML IVPB SCH ×3 (02:30→17:25)
[2021-06-11] MEDS: ALLOPURINOL 300 MG TABLET (FP) PO SCH (10:49)
[2021-06-11] MEDS: ESCITALOPRAM OXALATE 20 MG TABLET PO SCH (10:49)
[2021-06-11] MEDS: GABAPENTIN 300 MG CAPSULE PO SCH ×2 (10:49→21:36)
[2021-06-11] MEDS: metoPROLOL SUCCINATE 25 MG TAB.SR.24H (FP) PO SCH (10:49)
[2021-06-11] MEDS: ASPIRIN 81 MG CHEWABLE TABLETS PO SCH (10:49)
[2021-06-11] MEDS ORDERED: PT OWN MED DRAWER 7, Y5N ONE ×2 (10:51→20:59)
[2021-06-11] MEDS: HYDROXYUREA 500 MG CAPSULE PO SCH ×2 (10:53→21:36)
[2021-06-11] MEDS: traMADol HCL 50 MG TABLET PO PRN ×2 (11:12→17:25)
[2021-06-11 16:46] LABS: BASO % 0.7 % (0-2.0); EOS % 1.4 % (0-4.5); HEMATOCRIT 26.2 % (32.4-45.2); LYMPH % 43.2 % (8-40); MCHC 34.3 g/dl (32.0-36.0); MEAN CELL VOLUME 107.8 fl (80-96); MEAN PLT VOLUME 6.4 fl (7.5-11.1); MONO % 10.2 % (3.8-10.2); NEUT % 44.5 % (42.8-82.8); PLATELET COUNT 425 10^3/uL (134-434); RBC 2.43 M/mm3 (3.60-5.2); RDW 25.1 % (11.6-15.6); WHITE BLOOD COUNT 4.1 K/mm3 (4.0-10.0)
[2021-06-11 16:47] LABS: ADD RBC MORPHOLOGY YES
[2021-06-11 17:12] LABS: CALCIUM 8.5 mg/dL (8.5-10.1)
[2021-06-11 17:14] LABS: ALBUMIN 2.9 g/dl (3.4-5.0); BLOOD UREA NITROGEN 40.4 mg/dL (7-18)
[2021-06-11 17:16] LABS: CREATININE 1.8 mg/dL (0.55-1.3)
[2021-06-11 17:19] LABS: BILIRUBIN,TOTAL 0.2 mg/dL (0.2-1); TOT PROT 6.6 g/dl (6.4-8.2)
[2021-06-11 17:58] LABS: ANISOCYTOSIS 2+; MACROCYTOSIS 1+; PLATELET ESTIMATE NORMAL
[2021-06-11] MEDS: MELATONIN 5 MG TABLETS PO SCH (21:38)
[2021-06-11] MEDS: ACETAMINOPHEN 325 MG TABLET (FP) PO PRN (23:34)
[2021-06-12] MEDS ORDERED: PIPERACILLIN/TAZOBACTAM 3.375 GM VIAL IVPB ONE ×3 (01:11→17:35)
[2021-06-12] MEDS ORDERED: DEXTROSE 5%-WATER - 50 ML IVPB ONE ×3 (01:11→17:35)
[2021-06-12] MEDS: PIPERACILLIN/TAZOB 3.375 GM 3.375 GM in DEXTROSE 5%-WATER - 50 ML IVPB SCH ×3 (01:44→17:40)
[2021-06-12] MEDS ORDERED: PT OWN MED DRAWER 7, Y5N ONE (09:12)
[2021-06-12] MEDS: GABAPENTIN 300 MG CAPSULE PO SCH (09:14)
[2021-06-12] MEDS: ESCITALOPRAM OXALATE 20 MG TABLET PO SCH (09:14)
[2021-06-12] MEDS: ALLOPURINOL 300 MG TABLET (FP) PO SCH (09:14)
[2021-06-12] MEDS: HYDROXYUREA 500 MG CAPSULE PO SCH (09:15)
[2021-06-12] MEDS: traMADol HCL 50 MG TABLET PO PRN ×2 (09:15→15:35)
[2021-06-12] MEDS: ASPIRIN 81 MG CHEWABLE TABLETS PO SCH (09:55)
[2021-06-12] MEDS ORDERED: metoPROLOL SUCCINATE 25 MG TAB.SR.24H (FP) PO SCH (10:07)
[2021-06-12] MEDS: metoPROLOL SUCCINATE 25 MG TAB.SR.24H (FP) PO SCH (10:31)
[2021-06-12 18:59] VITALS: BP 109/61; PULSE 61; TEMP 97.8
== END 2021-06-12 19:19 | DRG 240 ==
LOC: JER 12:39 → JERBED 15:34 → J5S 21:20
PROVIDERS: ADMIT Family Medicine; ATTEND Family Medicine
PROC: 0Y6M0ZB Detachment at Right Foot, Partial 2nd Ray, Open Approach (ICD-10-PCS; 2021-06-02)
PROC: 0Y6M0ZC Detachment at Right Foot, Partial 3rd Ray, Open Approach (ICD-10-PCS; 2021-06-02)
PROC: 0Y6M0ZD Detachment at Right Foot, Partial 4th Ray, Open Approach (ICD-10-PCS; 2021-06-02)
PROC: 0Y6M0ZF Detachment at Right Foot, Partial 5th Ray, Open Approach (ICD-10-PCS; 2021-06-02)
PROC: 30233N1 Transfusion of Nonautologous Red Blood Cells into Peripheral Vein, Percutaneous Approach (ICD-10-PCS; 2021-06-02)
PROC: 0Y6M0Z9 Detachment at Right Foot, Partial 1st Ray, Open Approach (ICD-10-PCS; principal; 2021-06-02 08:03)
PROC: 0HRMX74 Replacement of Right Foot Skin with Autologous Tissue Substitute, Partial Thickness, External Approach (ICD-10-PCS; 2021-06-06)
PROC: 0Y6N0Z9 Detachment at Left Foot, Partial 1st Ray, Open Approach (ICD-10-PCS; 2021-06-06)
PROC: 0Y6N0ZB Detachment at Left Foot, Partial 2nd Ray, Open Approach (ICD-10-PCS; 2021-06-06)
PROC: 0Y6N0ZC Detachment at Left Foot, Partial 3rd Ray, Open Approach (ICD-10-PCS; 2021-06-06)
PROC: 0JBR0ZZ Excision of Left Foot Subcutaneous Tissue and Fascia, Open Approach (ICD-10-PCS; 2021-06-06)
PROC: 02HV33Z Insertion of Infusion Device into Superior Vena Cava, Percutaneous Approach (ICD-10-PCS; 2021-06-12)
PROC: B518ZZA Fluoroscopy of Superior Vena Cava, Guidance (ICD-10-PCS; 2021-06-12)
DX: E11.52 Type 2 diabetes mellitus with diabetic peripheral angiopathy with gangrene (principal); I96 Gangrene, not elsewhere classified; N17.9 Acute kidney failure, unspecified; M86.172 Other acute osteomyelitis, left ankle and foot; M86.171 Other acute osteomyelitis, right ankle and foot; M86.672 Other chronic osteomyelitis, left ankle and foot; M86.671 Other chronic osteomyelitis, right ankle and foot; N18.30 Chronic kidney disease, stage 3 unspecified; J44.9 Chronic obstructive pulmonary disease, unspecified; I12.9 Hypertensive chronic kidney disease with stage 1 through stage 4 chronic kidney disease, or unspecified chronic kidney disease; D47.3 Essential (hemorrhagic) thrombocythemia; D63.1 Anemia in chronic kidney disease; D63.8 Anemia in other chronic diseases classified elsewhere; E11.22 Type 2 diabetes mellitus with diabetic chronic kidney disease; E11.40 Type 2 diabetes mellitus with diabetic neuropathy, unspecified; F17.210 Nicotine dependence, cigarettes, uncomplicated; E11.69 Type 2 diabetes mellitus with other specified complication
CPT/HCPCS: 36415; 36430; 36569; 71045-TC-FY; 73630-TC-LT; 73630-TC-RT-FY; 73718-TC-LT; 73718-TC-RT; 80048; 80053; 82272; 82607; 82728; 82747; 82962; 83036; 83540; 83550; 83735; 84466; 85014; 85025; 85027; 85045; 85610; 85730; 86850; 86900; 86901; 86922; 87040; 87070; 87075; 87077; 87186; 87205; 88305-TC; 88311-TC; 93005; 93010; 94760; 99285-25; C9803; G0463-25; J0131; J1644; J8999; P9058; U0003; U0005

== ENCOUNTER 2025-03-01 17:11 | Inpatient (IN) | payer OTHER ==
[2025-03-01] MEDS: SODIUM CHLORIDE 1,000 ML IV SCH (18:27)
[2025-03-01] MEDS ORDERED: LABETALOL HCL 20 MG/4 ML VIAL ONE (18:34)
[2025-03-01 18:40] LABS: ABSOLUTE IMMATURE GRANULOCYTES 0.02 x10^3/uL (0.0-0.031); BASOPHILS # 0.01 x10^3/uL (0.01-0.08); HEMATOCRIT 40.8 % (34.1-44.9); MCHC 31.9 g/dl (32.2-35.5); MEAN CELL VOLUME 100.5 fl (79.4-94.8); MEAN PLT VOLUME 10.3 fl (9.4-12.3); MONOCYTE % 1.7 % (4.7-12.5); PLATELET COUNT 472 x10^3/uL (182-369)
[2025-03-01] MEDS: LABETALOL HCL 20 MG/4 ML VIAL IVPUSH ONE (18:40)
[2025-03-01 18:52] LABS: INR 1.06 (0.83-1.09); PROTHROMBIN TIME (PATIENT) 11.7 SEC (9.7-13.0)
[2025-03-01 19:00] LABS: POTASSIUM 4.5 mmol/L (3.5-5.1)
[2025-03-01 19:01] LABS: PH,URINE 6.5 (5.0-8.0); URINE APPEARANCE CLEAR; URINE BILIRUBIN NEGATIVE (NEGATIVE); URINE COLOR YELLOW; URINE GLUCOSE (UA) NEGATIVE (NEGATIVE); URINE KETONE NEGATIVE (NEGATIVE); URINE LEUK ESTERASE NEGATIVE (NEGATIVE); URINE NITRITE NEGATIVE (NEGATIVE); URINE PROTEIN NEGATIVE (NEGATIVE)
[2025-03-01 19:04] LABS: ALBUMIN 4.2 g/dl (3.4-5.0); CALCIUM 9.6 mg/dL (8.5-10.1)
[2025-03-01 19:05] LABS: BLOOD UREA NITROGEN 27.3 mg/dL (7-18)
[2025-03-01 19:07] LABS: CREATININE 1.5 mg/dL (0.55-1.3)
[2025-03-01 19:09] LABS: TOT PROT 7.6 g/dl (6.4-8.2)
[2025-03-01 19:10] LABS: BILIRUBIN,TOTAL 0.5 mg/dL (0.2-1)
[2025-03-01] MEDS: NICARDIPINE 25 MG in DEXTROSE 5%-WATER - 240 ML IVPB SCH (19:43)
[2025-03-01] MEDS: CHLORHEXIDINE GLUCONATE 4% CLEANSER FOR DECOLONIZATION TP SCH (22:35)
[2025-03-02 06:55] LABS: ABSOLUTE IMMATURE GRANULOCYTES 0.02 x10^3/uL (0.0-0.031); BASOPHILS # 0.03 x10^3/uL (0.01-0.08); EOSINOPHILS # 0.06 x10^3/uL (0.04-0.36); HEMATOCRIT 43.2 % (34.1-44.9); HEMOGLOBIN 13.7 g/dL (11.2-15.7); MCHC 31.7 g/dl (32.2-35.5); MEAN PLT VOLUME 10.2 fl (9.4-12.3); MONOCYTE # 0.71 x10^3/uL (0.24-0.86); MONOCYTE % 12.1 % (4.7-12.5); PLATELET COUNT 473 x10^3/uL (182-369); RDW 12.9 % (12.4-16.6)
[2025-03-02 07:06] LABS: INR 1.03 (0.83-1.09); PROTHROMBIN TIME (PATIENT) 11.3 SEC (9.7-13.0)
[2025-03-02 07:21] LABS: POTASSIUM 4.3 mmol/L (3.5-5.1)
[2025-03-02 07:23] LABS: CALCIUM 9.5 mg/dL (8.5-10.1)
[2025-03-02 07:24] LABS: ALBUMIN 4.3 g/dl (3.4-5.0); MAGNESIUM 2.1 mg/dL (1.8-2.4)
[2025-03-02 07:27] LABS: CREATININE 1.2 mg/dL (0.55-1.3); PHOSPHOROUS 4.3 mg/dL (2.5-4.9)
[2025-03-02 07:29] LABS: BILIRUBIN,TOTAL 0.7 mg/dL (0.2-1); TOT PROT 7.6 g/dl (6.4-8.2)
[2025-03-02] MEDS: LISINOPRIL 10 MG TABLET PO SCH (09:12)
[2025-03-02] MEDS: ESCITALOPRAM OXALATE 20 MG TABLET PO SCH (09:12)
[2025-03-02] MEDS: POLYETHYLENE GLYCOL (HEALTHYLAX) 3350 17 GM PACKET PO SCH (09:12)
[2025-03-02] MEDS: MUPIROCIN 2% TOPICAL OINTMENT FOR DECOLONIZATION NS SCH (09:16)
[2025-03-02] MEDS ORDERED: HYDROXYUREA 500 MG CAPSULE PO SCH (10:00)
[2025-03-02] MEDS: COLLAGENASE CLOSTRIDIUM HIST. 30 GRAMS TUBE TP SCH (13:05)
[2025-03-02] MEDS: HYDROXYUREA 500 MG CAPSULE PO SCH (13:07)
[2025-03-02] MEDS: AMINO ACIDS 4.25%/D5W 1,000 ML IV SCH (19:39)
[2025-03-02] MEDS ORDERED: ACETAMINOPHEN 500 MG TABLET (FP) PO PRN (21:01)
[2025-03-02] MEDS: ROSUVASTATIN CA 10 MG TABLET PO SCH (21:07)
[2025-03-03 07:01] LABS: HEMOGLOBIN 13.6 g/dL (11.2-15.7); MCHC 31.6 g/dl (32.2-35.5); MEAN CELL VOLUME 99.5 fl (79.4-94.8); MEAN PLT VOLUME 10.3 fl (9.4-12.3); PLATELET COUNT 531 x10^3/uL (182-369)
[2025-03-03 07:08] LABS: INR 1.01 (0.83-1.09)
[2025-03-03 07:11] LABS: ACTIVATED PTT 31.4 SECONDS (25.2-36.5)
[2025-03-03 07:32] LABS: POTASSIUM 4.1 mmol/L (3.5-5.1)
[2025-03-03 07:47] LABS: ALBUMIN 4.1 g/dl (3.4-5.0); BLOOD UREA NITROGEN 30.8 mg/dL (7-18); CALCIUM 9.6 mg/dL (8.5-10.1)
[2025-03-03 07:48] LABS: MAGNESIUM 2.5 mg/dL (1.8-2.4)
[2025-03-03 07:50] LABS: CREATININE 1.2 mg/dL (0.55-1.3)
[2025-03-03 07:52] LABS: BILIRUBIN,TOTAL 0.7 mg/dL (0.2-1); TOT PROT 7.5 g/dl (6.4-8.2)
[2025-03-03] MEDS: HYDROCHLOROTHIAZIDE 25 MG TABLET (FP) PO SCH (09:05)
[2025-03-03] MEDS: LISINOPRIL 20 MG TABLET PO SCH (09:05)
[2025-03-03] MEDS: ALBUTEROL SO4 2.5/IPRATROPIUM 0.5 INH SOL 3 ML VIAL.NEB. NEB ONE ×2 (11:52→15:40)
[2025-03-03] MEDS: SODIUM CHLORIDE 500 ML IV STA (12:10)
[2025-03-03] MEDS: MELATONIN 5 MG TABLETS PO ONE (21:59)
[2025-03-04 06:48] LABS: HEMATOCRIT 41.3 % (34.1-44.9); HEMOGLOBIN 13.8 g/dL (11.2-15.7); MCHC 33.4 g/dl (32.2-35.5); MEAN CELL VOLUME 97.6 fl (79.4-94.8); MEAN PLT VOLUME 10.2 fl (9.4-12.3); PLATELET COUNT 526 x10^3/uL (182-369); RDW 12.8 % (12.4-16.6)
[2025-03-04 07:08] LABS: POTASSIUM 3.7 mmol/L (3.5-5.1)
[2025-03-04 07:15] LABS: BLOOD UREA NITROGEN 29.6 mg/dL (7-18)
[2025-03-04 07:18] LABS: CREATININE 1.2 mg/dL (0.55-1.3)
[2025-03-04 07:19] LABS: BILIRUBIN,TOTAL 0.6 mg/dL (0.2-1); TOT PROT 7.2 g/dl (6.4-8.2)
[2025-03-04] MEDS: NEBIVOLOL 5 MG TABLET (FP) PO SCH (11:16)
[2025-03-05 06:51] VITALS: TEMP 98.2
[2025-03-05] MEDS ORDERED: ACETAMINOPHEN 500 MG TABLET (FP) PO PRN (07:20)
[2025-03-05] MEDS: POLYETHYLENE GLYCOL (HEALTHYLAX) 3350 17 GM PACKET PO SCH (10:08)
[2025-03-05] MEDS: HYDROCHLOROTHIAZIDE 25 MG TABLET (FP) PO SCH (10:09)
[2025-03-05] MEDS: LISINOPRIL 20 MG TABLET PO SCH (10:09)
[2025-03-05] MEDS: ESCITALOPRAM OXALATE 20 MG TABLET PO SCH (10:09)
[2025-03-05] MEDS: COLLAGENASE CLOSTRIDIUM HIST. 30 GRAMS TUBE TP SCH (10:13)
[2025-03-05 13:06] VITALS: BP 117/55; PULSE 84; RESP 16
[2025-03-05 14:33] VITALS: BMI 27.2
[2025-03-05] MEDS ORDERED: ROSUVASTATIN CA 10 MG TABLET PO SCH (22:00)
[2025-03-06] MEDS ORDERED: HYDROXYUREA 500 MG CAPSULE PO SCH (10:00)
== END 2025-03-05 15:14 | DRG 64 ==
LOC: JER 17:11 → JERBED 18:32 → JICU 20:45 → J4S 03-04 15:40
PROVIDERS: ADMIT Internal Medicine Pulmonary Disease; ATTEND Family Medicine
DX: I61.2 Nontraumatic intracerebral hemorrhage in hemisphere, unspecified (principal); G93.6 Cerebral edema; L89.623 Pressure ulcer of left heel, stage 3; I16.1 Hypertensive emergency; N17.9 Acute kidney failure, unspecified; J44.9 Chronic obstructive pulmonary disease, unspecified; I12.9 Hypertensive chronic kidney disease with stage 1 through stage 4 chronic kidney disease, or unspecified chronic kidney disease; N18.30 Chronic kidney disease, stage 3 unspecified; E11.22 Type 2 diabetes mellitus with diabetic chronic kidney disease; D47.3 Essential (hemorrhagic) thrombocythemia
CPT/HCPCS: 0241U-QW; 36415; 70450-TC; 70496-TC; 70498-TC; 71045-TC-FY; 80053; 80061; 81003; 82550; 82962; 83036; 83735; 84100; 84484; 85025; 85027; 85610; 85730; 86850; 86900; 86901; 87481; 93005; 93010; 93306-TC; 94640; 97116-GP; 97162-GP; 99291; J8999; Q9967